=== PATIENT | female | born 1980 | race Caucasian/White ===

== ENCOUNTER 2020-12-15 00:50 | Inpatient (IN) | payer OTHER, SELFPAY ==
[~2020-12-15] VITALS: Ht 160 cm; Wt 53.5 kg
[2020-12-15 00:52] VITALS: BP 130/69
--- NOTE | 2020-12-15 00:52 | NUR ---
BIBA JORDANA TAKEN TO BED 10
--- NOTE | 2020-12-15 00:55 | NUR ---
PATIENT 40 Y/O FEMALE BIBA FROM [facility] FOR C/O ABNORMAL LABS. PATIENT PRESENTS ALERT AND ORIENTED X 4. PATIENT ABLE TO MAKE NEEDS KNOWN. CALL LIGHT LEFT WITHIN REACH. PATIENT ON TRACH, RT AT BEDSIDE SETTING UP COOL AEROSOL MIST. PATIENT RESPIRATIONS ARE EVEN AND UNLABORED. NO SOB NOTED. PATIENT NOTED WITH PALE SKIN AND PALE ORAL MUCOSA. PATIENT NOTED WITH GTUBE. PATIENT DYALISIS ,,SAT. PATIENT WENT TO DYALISIS 12/14/20. SHUNT NOTED IN L FA. PATIENT REMAINS ON PHARMACY INNOVATION ASSISTANT. VSS. MEDHX:RESPIRATORY FAILURE, DM TYPE II, CHRONIC KIDNEY DISEASE, LEGALLY BLIND, CHRONIC ANEMIA, ANXIETY, DEPRESSION, DYSPAHGIA ALLERGIES: SEE ALLERGIES LIST
--- NOTE | 2020-12-15 01:10 | NUR ---
PER ERMD IV PLACEMENT CONSENT GIVEN TO PLACE IN R LOWER LEG. ERMD AWARE OF PATIENT'S DIABETES DIAGNOSIS.
--- NOTE | 2020-12-15 01:13 | NUR ---
EKG PERFORMED AT BEDSIDE. EKG READS SINUS RHYTHM @ 88
[2020-12-15 01:26] LABS: BASOPHILS # (AUTO) 0.1 K/uL (0.00-0.22); BASOPHILS % (AUTO) 0.6 % (0.0-2.0); EOSINOPHILS # (AUTO) 0.2 K/uL (0-0.4); LYMPHOCYTES # (AUTO) 0.6 K/uL (2.5-16.5); LYMPHOCYTES % (AUTO) 7.1 % (20.5-51.1); MEAN CORPUSCULAR HEMOGLOBIN 32 pg (27-31); MEAN CORPUSCULAR HGB CONC 33 g/dL (33-37); MEAN CORPUSCULAR VOLUME 98.1 fL (80-94); MONOCYTES # (AUTO) 0.3 K/uL (0.8-1.0); MONOCYTES % (AUTO) 4.2 % (1.7-9.3); NEUTROPHILS # (AUTO) 7.1 K/uL (1.8-7.7); NEUTROPHILS % (AUTO) 86.1 % (42.2-75.2); PLATELET COUNT (AUTO) 402 K/uL (140-450); RED BLOOD CELL COUNT(AUTO) 1.92 MIL/uL (4.20-5.40); RED CELL DISTRIBUTION WIDTH 20.1 % (11.6-13.7); WHITE BLOOD COUNT (AUTO) 8.2 K/uL (4.8-10.8)
[2020-12-15 01:31] LABS: HEMATOCRIT 18.8 % (36-48); HEMOGLOBIN 6.1 g/dL (12.0-16.0)
[2020-12-15 01:41] LABS: ANION GAP 12.8 (8-16); CARBON DIOXIDE 26.4 mmol/L (21-32); POTASSIUM 4.2 mmol/L (3.5-5.1)
[2020-12-15 01:43] LABS: PROTHROMBIN TIME 13.1 secs (10.8-13.4)
--- NOTE | 2020-12-15 01:43 | NUR ---
PATIENT C/O 10/10 SACRAL PAIN. PATIENT REPOSITIONED IN BED AND GIVEN EXTRA PILLOWS FOR COMFORT. ERMD GAVE NEW ORDERS FOR PAIN MEDICAITON.
[2020-12-15] MEDS ORDERED: HYDROcodone/APAP 5/325 MG 1 TAB TAB PO ONE (01:50)
[2020-12-15] MEDS ORDERED: HYDROcodone/APAP 5/325 MG 1 TAB TAB ONE (01:50)
--- NOTE | 2020-12-15 02:16 | NUR ---
PATIENT REPOSITIONED IN BED FOR COMFORT MEASURES. PATIENT REMAINS ON INDUSTRIAL SALES ENGINEER. VSS.
--- NOTE | 2020-12-15 03:05 | NUR ---
PER SCARLET, HOOD MAKER MACHINE TO RUN COVID SPENCER IS DOWN AND SPECIMENT WILL BE SENT TO [facility] THEREFORE RESULTS WILL BE DELAY. GENESIS MADE AWARE.
--- NOTE | 2020-12-15 03:15 | NUR ---
Consent signed per PATIENT via verbal agreement to administration of blood. Blood has been type and crossmatched. Blood sent from blood bank. Information on unit of blood checked against patient wristband at bedside by two nurses. All information matches. Patient or responsible alliance party informed of potential complications associated with blood transfusion. Informed of possible transfusion reaction symptoms. Aware of need to notify nurse at once of itching, shortness of breath, flushing, feeling of impending doom, or other symptoms not previously present. Vital signs taken within 5 minutes prior to initiation of transfusion. RN will remain with patient for first 15 minutes of transfusion at which time vital signs will be re-assessed.
[2020-12-15] MEDS: DEXTROSE 5% 1,000 ML IV SCH ×2 (03:30→21:52)
--- NOTE | 2020-12-15 03:30 | NUR ---
Ayan zheng in ED - 12/15/20 at 0335 by MELISSAAA PT SLEEPING COMFORTABLY ON CA 28% 7LPM W/ NO DISTRESS NOTED WATER ON CA WAS REPLACED W/ FULL WATER
--- NOTE | 2020-12-15 03:35 | NUR ---
PT SLEEPING COMFORTABLY ON CA 28% 7LPM W/ NO DISTRESS NOTED WATER ON CA 3/4 FULL W/ REPLACEMENT WATER AT BEDSIDE WILL CONTINUE TO MONITOR
[2020-12-15] MEDS ORDERED: APIX5TAB PO (03:50)
[2020-12-15] MEDS ORDERED: LANS15EC28 GT (03:50)
[2020-12-15] MEDS ORDERED: ESCI10TA GT (03:50)
[2020-12-15] MEDS ORDERED: PRO5 PO (03:50)
[2020-12-15] MEDS ORDERED: ASCO500T95 PO (03:50)
[2020-12-15] MEDS ORDERED: OSC500 GT (03:50)
[2020-12-15] MEDS ORDERED: BISA-218 RC (03:50)
[2020-12-15] MEDS ORDERED: AMLO10TA GT (03:50)
--- NOTE | 2020-12-15 04:02 | NUR ---
PATIENT WOUND PICTURES TAKEN OF SACRUM AND BUTTOCKS. PATIENT SKIN LEFT CLEAN AND DRY. WOUNDS RE-DRESSED. PATIENT REMAINS ON OUTPATIENT RECEPTIONIST. VSS.
--- NOTE | 2020-12-15 04:35 | NUR ---
Patient will be admitted to care of . Admited to TELE. Will go to room 117. Belongings list completed. Report to APPLE JARVIS.
--- NOTE | 2020-12-15 05:05 | NUR ---
ER NURSE CALLED REPORT GIVEN. ADMITTED A 40 Y/O FEMALE PATIENT VIA GURNEY, AWAKE, ALERT, ORIENTED X4. CC: ABNORMAL LABS: HGB- 6.1 HCT: 18/8. DX: SYMPTOMATIC ANEMIA. NO ACUTE DISTRESS, RESPIRATION EVEN UNLABORED.TRACH IN PLACE, WITH O2 AT 3LPM. G-TUBE IN PLACE CONNECTED TO A BAG. RFA AV SHUNT. 1 UNIT OF BLOOD INFUSING, DONE AT 0530, V/S 131/77,84,18,97.6,99%. V/S-126/74,85,18,97.5,99%. PT HAS WOUND ON THE SACRUM AND BUTTOCKS. TREATMENT INITIATED IN ER. DIALYSIS ON SUNDAY, SUNDAY AND SUNDAY. LAST DIALYSIS DONE SUNDAY. MRSA NARES SCREENING DONE. SPENCER NEGATIVE. PATIENT IS LEGALLY BLIND. WILL CONTINUE TO MONITOR.
--- NOTE | 2020-12-15 05:14 | NUR ---
PT TRANSFERRED FROM ED TO TELE RM 117. PT TOLERATED TRANSPORT WELL AND REMAINS ON CA 28% 7LPM. WILL RETURN AT A LATER TIME FOR TRACH CARE RN IS AT BEDSIDE WORKING W/ PT
--- NOTE | 2020-12-15 05:35 | NUR ---
TRACH CARE COMPLETED
[2020-12-15] MEDS ORDERED: HYDROcodone/APAP 5/325 MG 1 TAB TAB PO SCH (07:30)
--- NOTE | 2020-12-15 07:30 | NUR ---
RECEIVED BEDSIDE REPORT FROM NIGHT RN. AOX3, ABLE TO MAKE NEEDS KNOWN. NO C/O PAIN. AMBULATORY. TRACH TO O2. RESPIRATIONS ARE EVEN AND UNLABORED. SKIN IS WARM AND DRY. SKIN NOT INTACT, WITH SACRAL AND BUTTOCK WOUND. IV SIGHT IN LEFT LOWER LEG INFUSING D5W AT 60CC/HR. WITH RFA AV SHUNT. POC DISCUSSED. CALL LIGHT IS WITHIN REACH. WILL CONTINUE TO MONITOR.
[2020-12-15 08:00] VITALS: BP 146/87
[2020-12-15] MEDS ORDERED: ZOLPIDEM 5 MG TAB PO PRN (08:25)
[2020-12-15] MEDS ORDERED: DOCUSATE SODIUM 100 MG GELCAP PO PRN (08:25)
--- NOTE | 2020-12-15 08:50 | NUR ---
Due morning meds given
[2020-12-15 08:56] LABS: BASOPHILS # (AUTO) 0.1 K/uL (0.00-0.22); EOSINOPHILS # (AUTO) 0.2 K/uL (0-0.4); EOSINOPHILS % (AUTO) 2.6 % (0.0-4.0); HEMATOCRIT 25.3 % (36-48); HEMOGLOBIN 8.3 g/dL (12.0-16.0); LYMPHOCYTES # (AUTO) 0.7 K/uL (2.5-16.5); LYMPHOCYTES % (AUTO) 10.2 % (20.5-51.1); MEAN CORPUSCULAR HEMOGLOBIN 32 pg (27-31); MEAN CORPUSCULAR HGB CONC 33 g/dL (33-37); MEAN CORPUSCULAR VOLUME 97.4 fL (80-94); MONOCYTES # (AUTO) 0.3 K/uL (0.8-1.0); MONOCYTES % (AUTO) 4.9 % (1.7-9.3); NEUTROPHILS # (AUTO) 5.7 K/uL (1.8-7.7); NEUTROPHILS % (AUTO) 81.3 % (42.2-75.2); PLATELET COUNT (AUTO) 408 K/uL (140-450); RED CELL DISTRIBUTION WIDTH 19.3 % (11.6-13.7)
[2020-12-15] MEDS ORDERED: PANTOPRAZOLE 40 MG TABEC PO SCH (09:00)
[2020-12-15 09:21] LABS: CHOL/HDL RATIO 2.9 (1-4.5); FREE T4 (FREE THYROXINE) 0.67 ng/dL (0.76-1.46); PHOSPHORUS 2.9 mg/dL (2.5-4.9); THYROID STIMULATING HORMONE 2.01 uIU/mL (0.34-3.74)
[2020-12-15] MEDS: PANTOPRAZOLE 40 MG INJ VIAL IVP SCH (09:24)
--- NOTE | 2020-12-15 10:51 | NUR ---
PATIENT HAS BEEN SCREENED AND CATEGORIZED HIGH NUTRITION RISK. PATIENT WILL BE SEEN WITHIN 1-2 DAYS OF ADMISSION. 12/16/[address]
[2020-12-15] MEDS: ONDANSETRON 4 MG/2 ML VIAL IM/IVP PRN ×2 (11:19→16:00)
--- NOTE | 2020-12-15 11:20 | NUR ---
WITH C/O PAIN AT TRACH SITE 12/02. NORCO GIVEN ORDERED
[2020-12-15] MEDS: HYDROcodone/APAP 7.5/325 MG 1 TAB PO PRN ×3 (11:23→20:19)
--- NOTE | 2020-12-15 11:45 | NUR ---
DIETITIAN AT BEDSIDE TALKING TO PT REGARDING HER DIET
[2020-12-15] MEDS: SKINTEGRITY HYDROGEL TP SCH (11:50)
[2020-12-15 12:00] VITALS: BP 127/75
--- NOTE | 2020-12-15 12:27 | NUR ---
WOUND CARE EVALUATION NOTE: SKIN ASSESSMENT DONE WITH PRIMARY RN ON THIS 40 Y/O PT ADMITTED WITH PRESSURE INJURIES AND JEFF SCALE AT VERY HIGH RISK, PAST MEDICAL HX: RESPIRATORY FAILURE, DM TYPE II, CHRONIC KIDNEY DISEASE, LEGALLY BLIND, CHRONIC ANEMIA, ANXIETY, DEPRESSION, DYSPHAGIA , ABOVE INFORMATION OBTAIN FROM H&P. PT. MAKE NEED KNOW BY WHISPERING WORDS, ALL NEEDS ATTENDED. PT. SKIN IS WARM AND DRY, PALE SKIN COLOR. AV SHUNT TO RIGHT ARM SKIN INTACT WITH DRESSING IN PLACE. BLE NO HAIR GROWTH, NO EDEMA TO BILATERAL LOWER LEGS. BILATERAL DORSAL PEDAL PULSES PRESENT AND NORMAL, CAPILLARY REFILLED <3 SEC X 10 TOES. POC DISCUSSED WITH PT AND PRIMARY RN. PT. IS NPO AND PENDING GI CONSULT PER RN. INTEGUMENTARY: -TRACK AND GT SITES DRAKE STOMA SKIN DRY AND INTACT -LEFT ISCHIA PRESSURE INJURY UNKNOWN HX OF STAGING, TODAYS ASSESSMENT PARTIAL THICKNESS SKIN LOSS 4X1CM SUPERFICIAL DEPTH, WOUND BED 100% GRANULATING TISSUE, NO ODOR, MOIST, DRAKE-WOUND SKIN NON-BLANCHABLE HEALING SCAR TISSUE, PAIN 0/10 -SACRALCOCCYX PRESSURE INJURY STAGE 4 WOUND BED [id number] CM UNDERMINING 6-9 OCLOCK 1.8CM WOUND BED 100% GRANULATING TISSUE, MODERATE AMOUNT SANGUINOUS DRAINAGE, NO ODOR, WOUND EDGE FLAT AND DRAKE WOUND SKIN PALE PINK, INTACT, PAIN 0/10 RECOMMENDATIONS - CLEANSE SACRALCOCCYX AND LEFT ISCHIA WITH WOUND CARE SOLUTION, PAT DRY, APPLY HYDROGEL TO WOUND BED COVER WITH FAN FOLDED KERLIX ROLL AND ABD PAD, SECURED WITH TAPE QD AND PRN IF SOILING -CLEANSE LEFT ISCHIA WITH WOUND CARE SOLUTION, PAT DRY, APPLY HYDROGEL TO WOUND BED COVER WITH ADAPTIC AND ISLAND DRESSING QD AND PRN IF SOILING -TURN AND REPOSITION PATIENT Q 2H -ASSESS AND MONITOR SKIN CONDITION DURING POSITION CHANGE -OFFLOAD BILATERAL HEELS BY PLACING PILLOWS UNDER CALVES AT ALL TIMES, UNLESS OTHERWISE CONTRAINDICATED -PRESSURE REDISTRIBUTION SURFACE THERAPY -KEEP SKIN CLEAN AND DRY AT ALL TIMES. PLEASE CONTACT WOUND CARE NURSE FOR ANY QUESTION AND CHANGE OF WOUND CONDITION. Addendum: 12/24/20 at 1105 by Julius Kilpatrick RN (Grace) CORRECTION: -SACRALCOCCYX PRESSURE INJURY STAGE 4 WOUND BED [id number] CM UNDERMINING 6-9 OCLOCK 1.8CM WOUND BED 80% GRANULATING TISSUE,20% SOFT YELLOW SLOUGH TISSUE, MODERATE AMOUNT SANGUINOUS DRAINAGE, NO ODOR, WOUND EDGE FLAT AND DRAKE WOUND SKIN PALE PINK, INTACT, PAIN 0/10
--- NOTE | 2020-12-15 13:34 | NUR ---
ALIN FROM DIALYSIS NOTIFIED OF THE HD ORDERED FOR TOMORROW.
[2020-12-15 13:35] LABS: ALBUMIN 1.6 g/dL (3.4-5.0); BILIRUBIN,DIRECT 0.2 mg/dL (0.0-0.3); TOTAL BILIRUBIN 0.4 mg/dL (0.0-1.0)
[2020-12-15] MEDS: ERYTHROMYCIN ETHYLSUCCINATE SUSP 200 MG/5 ML UDC PO SCH ×2 (13:52→16:39)
--- NOTE | 2020-12-15 14:20 | NUR ---
PT ASLEEP AT THIS TIME. NO APPARENT DISTRESS
--- NOTE | 2020-12-15 15:15 | NUR ---
WITH C/O SACRAL WOUND PAIN 12/02. NORCO GIVEN ORDERED
--- NOTE | 2020-12-15 15:39 | NUR ---
DC PLANNIN YRS OLD FEMALE PATIENT [facility] WITH A DX OF SYMPTOMATIC ANEMIA. PT HAS A HX OF ESRD ON DIALYSIS TTHS, PE, DVT, DM AND HTN. PT HAS TRACH AND G-TUBE. H/H WAS 6.5 ON ADMISSION, TRANSFUSED 1 UNIT OF PRBC AND HEMOGLOBIN WENT UP 8.3. CXR SHOWED PNA AND POSSIBLE TRACE LEFT PLEURAL EFFUSION . RAPID COVID TEST NEGATIVE. ADMINISTERED IVF, IV ABX ERYTHROMYCIN AND CONTINUED HOME MEDS. CONSULTED WITH PULMO, NEPHRO AND GI. DC PLAN TO RETURN BACK TO [facility] WHEN STABLE CM TO FOLLOW Addendum: 12/17/20 at 1545 by Joaquina Eisenberg RN DC PLANNING: CALLED PT'S SPOKE WITH FELIPE ESTRELLA , STATED HE PREFERRED HIS TO BE REPLACED TO OTHER FACILITY, NOT HAPPY WITH THE CARE, PLUS IF IT IS POSSIBLE TO PLACE HER CLOSER TO [facility]. I EXPLAINED THAT I CAN REQUEST OTHER FACILITY HOWEVER SHE IS ON DIALYSIS AT [facility]. FAXED TO [facility]. PER FELIPE IF WE CAN'T FIND ANY OK TO GO BACK TO [facility]. CALLED [facility] SPOKE WITH LIZA THE ADMIN DISCUSSED WITH TH ISSUES AND CONCERN, PER LIZA NO ONE REPORTED OR FELIPE DIDN'T COMPLAIN TO THE FOOD SCIENCE TECHNICIAN . JIGNA DE JESUS WILL REACH OUT TO HIM AND DISCUSS THE CONCERN. IF THEY AGREE PT CAN GO TO ROOM 112A. DC PLAN OVER THE WEEKEND. Addendum: 12/17/20 at 1600 by Joaquina Eisenberg RN DC PLANNING: CALLED [facility] [phone] SPOKE WITH BERKLEY PT IS ON HEMODIALYSIS ON , AND THE TRANSPORT IS WITH [facility] [phone]. PER BERKLEY FOR THEM TO ACCEPT PT HEMOGLOBIN HAS TO BE ABOVE 8 AND FAXED ALL CLINICALS TO [phone] . CM TO FOLLOW Addendum: 12/17/20 at 1616 by Joaquina Eisenberg RN DC PLANNING: CALLED PT'S SPOKE WITH FELIPE NOTIFIED HIM THAT UNABLE TO FIND OTHER ACCEPTING FACILITIES BECAUSE OF TRACH-COLLAR AND HEMODIALYSIS, FELIPE AGREED FOR HER TO GO BACK TO [facility] WHEN SHE IS STABLE CM TO FOLLOW. PT CAN GO TO ROOM 112 A. PLS CALL [facility] AT [phone] CM TO FOLLOW Addendum: 12/22/20 at 1519 by Joaquina Eisenberg RN D PLANNING: STILL AWAITING FOR EGD TO BE DONE, DR BALDERRAMA IN TO UNIT PERFORMING ANOTHER PATIENT. DC PLAN TO GO BACK TO [facility] WHEN STABLE. CM TO FOLLOW Addendum: 12/23/20 at 0923 by Joaquina Eisenberg RN DC PLANNING: CALLED PT'S WILLIAM ZELAYA [phone] TO DISCUSS PT'S REQUEST TO GO HOME. LEFT MESSAGE. CM TO FOLLOW Addendum: 12/24/20 at 7306 by Joaquina Eisenberg RN DC PLANNING: PT'S NATHALIE AND HER SON IN THE UNIT, FAVIOLA WOUND CARE NURSE DISCUSSED THE WOUND CARE AND THE RISK FOR TAKING PATIENT HOME. AFTER HE SEEN THE WOUND NATHALIE AGREED PT TO GO BACK TO [facility] HOWEVER DIDN'T WNAT PT TO GO BACK TO [facility] BECAUSE OF POOR CARE. PROVIDE [facility] [place], [facility] AND [facility] . NATHALIE VISITED [facility] [place] AND SPOKE WITH THE ADMIN AND STATED LIKED IT AND HE WANTED HER TO GO TO [facility] [place]. AWAITING FOR [facility] [place] [place] TO ACCEPT PATIENT. CALLED [facility] SPOKE WITH BERKLEY STATED CAN CONTINUE DIALYSIS TTHS AT 6 AM. CALLED THE PREVIOUS TRANSPORT [facility] [phone] STATED THEY CAN NOT [place] PATIENT FROM [facility]. DC PLAN AWAITING FOR THE ROOM NUMBER FROM [facility] [place]. CM TO FOLLOW Addendum: 12/24/20 at 1350 by Joaquina Eisenberg RN DC PLANNING PT IS ACCEPTED AT [facility] [place] [place] CAN GO TO ROOM 49C # TO GIVE REPORT [phone] [facility]ED TRANSPORT WITH [facility] [phone] [place] TIME 5 PM REF # [id number]. [facility] FOR DIALYSIS SUNDAY, SUNDAY AND SUNDAY [facility] TIME 5 AM, REF # [id number] WILL NOTIFIED [facility] [place] [place] AND PT WILL HAVE DIALYSIS TOMORROW. NOTIFIED YVETTE JARVIS AND NATHALIE. CM TO FOLLOW
[2020-12-15 16:00] VITALS: BP 126/76
--- NOTE | 2020-12-15 17:10 | NUR ---
PT RESTING IN BED. NO C/O PAIN, NO SOB
--- NOTE | 2020-12-15 18:30 | NUR ---
with c/o back discomfort, repositioning effective
--- NOTE | 2020-12-15 19:30 | NUR ---
REPORT GIVEN FROM AM NURSE. PATIENT IN BED RESTING . NO ACUTE DISTRESS NOTED AT THIS TIME. GLUCERNA G-TUBE FEEDING RUNNING AT 3O ML/HR. CALL LIGHT WITHIN REACH. WILL CONTINUE TO MONITOR.
[2020-12-15 20:00] VITALS: BP 117/75
[2020-12-15] MEDS ORDERED: CRUSHER, PILL MC ONE (20:05)
--- NOTE | 2020-12-15 20:19 | NUR ---
COMPLAINED OF MODERATE PAIN ON SACRAL WOUND 12/02, NORCO PRN ADMINISTERED PER MD ORDERED.
[2020-12-16] VITALS: BP 153/85
[2020-12-16] MEDS: HYDROcodone/APAP 7.5/325 MG 1 TAB PO PRN ×5 (00:41→20:28)
[2020-12-16 04:00] VITALS: BP 152/84
--- NOTE | 2020-12-16 04:35 | NUR ---
PATIENT VERBALIZES SHE IS DEPRESSED. COMFORTED
[2020-12-16 06:29] LABS: BASOPHILS # (AUTO) 0.1 K/uL (0.00-0.22); BASOPHILS % (AUTO) 0.8 % (0.0-2.0); EOSINOPHILS # (AUTO) 0.2 K/uL (0-0.4); HEMATOCRIT 24.1 % (36-48); HEMOGLOBIN 8.1 g/dL (12.0-16.0); LYMPHOCYTES # (AUTO) 0.9 K/uL (2.5-16.5); LYMPHOCYTES % (AUTO) 11.1 % (20.5-51.1); MEAN CORPUSCULAR HEMOGLOBIN 32 pg (27-31); MEAN CORPUSCULAR HGB CONC 34 g/dL (33-37); MEAN CORPUSCULAR VOLUME 96.3 fL (80-94); MONOCYTES # (AUTO) 0.4 K/uL (0.8-1.0); MONOCYTES % (AUTO) 5.2 % (1.7-9.3); NEUTROPHILS # (AUTO) 6.3 K/uL (1.8-7.7); NEUTROPHILS % (AUTO) 80.9 % (42.2-75.2); PLATELET COUNT (AUTO) 448 K/uL (140-450); RED BLOOD CELL COUNT(AUTO) 2.51 MIL/uL (4.20-5.40); RED CELL DISTRIBUTION WIDTH 18.7 % (11.6-13.7); WHITE BLOOD COUNT (AUTO) 7.8 K/uL (4.8-10.8)
[2020-12-16 06:37] LABS: ANION GAP 7.9 (8-16); CARBON DIOXIDE 29.2 mmol/L (21-32); CREATININE 2.4 mg/dL (0.6-1.3); POTASSIUM 4.1 mmol/L (3.5-5.1)
--- NOTE | 2020-12-16 07:27 | NUR ---
ENDORSED TO AM NURSE FOR CONTINUITY OF CARE. PT IS STABLE.
--- NOTE | 2020-12-16 07:31 | NUR ---
ENDORSED TO AM NURSE FOR CONTINUITY OF CARE . PT IS STABLE.
--- NOTE | 2020-12-16 07:36 | NUR ---
RECEIVED BEDSIDE REPORT FROM NIGHTSHIFT NURSE. PT RESTING IN BED. ABLE TO MAKE SOME NEEDS KNOWN. RESPIRATIONS EVEN AND UNLABORED WITH NO SOB OR RESPIRATORY DISTRESS. SKIN WARM AND DRY TO TOUCH. SAFETY MEASURES IN PLACE. WILL CONTINUE TO MONITOR
[2020-12-16 08:00] VITALS: BP 151/84
[2020-12-16] MEDS: ERYTHROMYCIN ETHYLSUCCINATE SUSP 200 MG/5 ML UDC PO SCH ×3 (08:58→17:13)
[2020-12-16] MEDS: PANTOPRAZOLE 40 MG INJ VIAL IVP SCH (09:01)
--- NOTE | 2020-12-16 09:01 | NUR ---
ADMINISTERED SCHED MED PRESCRIBED PER MD ORDER. PT TOLERATED WELL. PT COMPLAINED OF MODERATE PAIN. PRN NORCO ADMINISTERED PRESCRIBED PER MD ORDER. MEDICATION EDUCATION PERFORMED. PT VERBALIZED UNDERSTANDING. SAFETY MEASURES IN PLACE. WILL CONTINUE TO MONITOR
--- NOTE | 2020-12-16 09:11 | NUR ---
FNS CONSULT HAS BEEN RECEIVED FOR WOUNDS/PRESSURE INJURIES.
[2020-12-16] MEDS: SKINTEGRITY HYDROGEL TP SCH (09:15)
--- NOTE | 2020-12-16 10:04 | NUR ---
PATIENT REFUSED TO BE TURNED AND CHANGED WITH WASTEWATER SUPERINTENDENT. PT STATED "LEAVE ME ALONE! I AM FINE!" EDUCATED PT ON PURPOSE OF REPOSITIONING. PT SAID "I KNOW AND WOULD LIKE TO BE TURNED LATER." AWARE. SAFETY MEASURES IN PLACE. WILL CONTINUE TO MONITOR
[2020-12-16] MEDS ORDERED: SODIUM FERRIC GLUCONATE 125 MG in NACL 0.9% 100 ML IV SCH (10:30)
--- NOTE | 2020-12-16 11:30 | NUR ---
NATHALIE CALLED AND WANTED UPDATE. UPDATE GIVEN. NATHALIE SAID THAT HE WOULD LIKE TO SPEAK WITH A DOCTOR. NOTIFIED DR. ANGLIN THAT NATHALIE WOULD LIKE AN UPDATE. VERBALIZED UNDERSTANDING. PT SPEAKING TO NATHALIE ON THE PHONE. SAFETY MEASURES IN PLACE. WILL CONTINUE TO MONITOR
[2020-12-16 12:00] VITALS: BP 158/87
--- NOTE | 2020-12-16 12:00 | NUR ---
HD NURSE HERE TO DIALYZE PATIENT. REPORT GIVEN AT BEDSIDE. SAFETY MEASURES IN PLACE. WILL CONTINUE TO MONITOR
[2020-12-16] MEDS: DEXTROSE 5% 1,000 ML IV SCH (12:50)
--- NOTE | 2020-12-16 13:51 | NUR ---
12/16/20 RD INITIAL ASSESSMENT COMPLETED PLEASE REFER TO NUTRITION ASSESSMENT UNDER CARE ACTIVITY FOR ESTIMATED NUTRITIONAL NEEDS. 1. CONTINUE RENAL MECHANICAL SOFT DIET TOLERATED 2. RECOMMENDED CHANGING FORMULA TO NEPRO 1.8 @ 40 ML/HR WITH PROSOURCE ONCE DAILY -THIS WILL PROVIDE 1788 KCAL AND 93 GM OF PROTEIN. MEETING 100% OF KCAL AND PROTEIN NEEDS 3. RECOMMENDED VITAMIN C 500 MG BID AND NEPHRO-PAMELA ONCE DAILY 4. RD TO FOLLOW-UP 2-3 DAYS, HIGH RISK ANNA SHERMAN RD
--- NOTE | 2020-12-16 13:56 | NUR ---
DR. BALDERRAMA APPROVED RD RECOMMENDATION TO CHANGE TUBE FEEDING TO NEPRO. DR. ANGLIN APPROVED RECOMMENDATION FOR VITAMIN C 500 MG BID AND NEPHRO-PAMELA ONCE DAILY.
--- NOTE | 2020-12-16 14:43 | NUR ---
PT COMPLAINED OF MODERATE PAIN. PRN NORCO ADMINISTERED PRESCRIBED PER MD ORDER. MEDICATION EDUCATION PERFORMED. PT VERBALIZED UNDERSTANDING. SAFETY MEASURES IN PLACE. WILL CONTINUE TO MONITOR
[2020-12-16] MEDS ORDERED: DEXTROSE 50% 50 ML SYR IVP PRN (15:20)
[2020-12-16] MEDS: NACL 0.9% 1,000 ML IV SCH (15:31)
[2020-12-16 16:00] VITALS: BP 155/85
--- NOTE | 2020-12-16 16:00 | NUR ---
PT HAD 1L OUT FROM HD. PT TOLERATED WELL. SAFETY MEASURES IN PLACE. WILL CONTINUE TO MONITOR
[2020-12-16] MEDS: BLOOD GLUCOSE MONITORING 1 DEV DEV FS SCH ×2 (17:10→21:54)
--- NOTE | 2020-12-16 17:15 | NUR ---
PT RESTING IN BED. ABLE TO MAKE NEEDS KNOWN. RESPIRATIONS EVEN AND UNLABORED WITH NO SOB OR RESPIRATORY DISTRESS. SKIN WARM AND DRY TO TOUCH. SAFETY MEASURES IN PLACE. WILL CONTINUE TO MONITOR
--- NOTE | 2020-12-16 19:15 | NUR ---
ENDORSED TO NIGHTSHIFT FOR CONTINUITY OF CARE. PT IS STABLE
--- NOTE | 2020-12-16 19:20 | NUR ---
RECEIVED REPORT FROM AM NURSE. PATIENT ON BED WELL RESTED. DENIES PAIN. WILL CONTINUE TO MONITOR.
[2020-12-16 20:00] VITALS: BP 148/84
[2020-12-16] MEDS: ASCORBIC ACID 500 MG TAB PO SCH (21:49)
--- NOTE | 2020-12-16 21:49 | NUR ---
PT COMPLAINED OF INABILITY TO SLEEP, AMBIEN GIVEN ORDERED.
[2020-12-16] MEDS: INSULIN LISPRO SLIDING SCALE 100 UNITS/ML VIAL SUBQ PRN (21:54)
[2020-12-17] VITALS: BP 160/87
[2020-12-17] MEDS: HYDROcodone/APAP 7.5/325 MG 1 TAB PO PRN ×4 (00:28→21:14)
--- NOTE | 2020-12-17 02:00 | NUR ---
MADE ROUNDS PT ASLEEP
--- NOTE | 2020-12-17 03:30 | NUR ---
RECEIVED PATIENT FOR CONTINUITY OF CARE DUE TO CHANGE ASSIGNMENT. PATIENT IS A/A/O X4. RESPIRATORY EVEN AND UNLABORED, TRACH TO O2 7L. NO SIGN OF DISTRESS NOTED. SKIN WARM, DRY, NON DIAPHORETIC, SACRAL AND BUTTOCK WOUND WITH DRESSING IN PLACE. IV ON RIGHT LOWER LEG 20G, INTACT AND PATENT, IS INFUSING NS @60ML/HR. AV SHUNT NOTED ON RIGHT FA FOR HEMODIALYSIS. G-TUBE IN PLACE, IS RUNNING NEPRO @40ML/HR WITH WATER FLUSH 50ML Q6HR. PATIENT IS ABLE TO MAKE NEEDS KNOWN. PLAN OF CARE DISCUSSED, PATIENT VERBALIZED UNDERSTANDING. PRECAUTION IN PLACE. CALL LIGHT WITHIN REACH. WILL CONTINUE TO MONITOR.
--- NOTE | 2020-12-17 03:46 | NUR ---
ENDORSED PT TO RN BOWENS FOR CONTINUITY OF CARE. PT IS STABLE
[2020-12-17 04:00] VITALS: BP 177/93
--- NOTE | 2020-12-17 04:45 | NUR ---
PATIENT COMPLAINS OF PAIN ON HER SACRAL, MEDICATION PRN GIVEN WITH EDUCATION. PATIENT VERBALIZED UNDERSTANDING. NO SIGN OF DISTRESS NOTED. PRECAUTION IN PLACE. CALL LIGHT WITHIN REACH. WILL CONTINUE TO MONITOR.
[2020-12-17] MEDS: BLOOD GLUCOSE MONITORING 1 DEV DEV FS SCH ×4 (06:25→21:20)
[2020-12-17] MEDS: INSULIN LISPRO SLIDING SCALE 100 UNITS/ML VIAL SUBQ PRN ×4 (06:25→21:26)
--- NOTE | 2020-12-17 06:25 | NUR ---
BLOOD SUGAR CHECK 171, 2UNITS OF INSULIN WAS GIVEN WITH EDUCATION. PATIENT VERBALIZED UNDERSTANDING. PATIENT TOLERATED WELL. CALL LIGHT WITHIN REACH. PRECAUTION IN PLACE. WILL CONTINUE TO MONITOR.
--- NOTE | 2020-12-17 07:28 | NUR ---
ENDORSED PATIENT TO AM NURSE FOR CONTINUITY OF CARE. PATIENT IS STABLE.
--- NOTE | 2020-12-17 07:30 | NUR ---
RECEIVED BEDSIDE REPORT FROM BULK CLERK NURSE. PATIENT IS A/A/O X4, ABLE TO MAKE NEEDS KNOWN.. RESPIRATORY EVEN AND UNLABORED, TRACH TO O2 7L WITH HUMIDIFIER . NO SIGNS OF RESPIRATORY DISTRESS NOTED. SKIN WARM AND DRY. IV ON RIGHT LOWER LEG 20G INFUSING FLUIDS WELL. INTACT AND PATENT. AV SHUNT NOTED ON RIGHT FA FOR HEMODIALYSIS. G-TUBE IN PLACE INFUSING. INTACT AND PATENT. NOTED SACRAL AND BUTTOCK WOUND WITH DRESSING IN PLACE. PLAN OF CARE DISCUSSED, PATIENT VERBALIZED UNDERSTANDING. PRECAUTION IN PLACE. CALL LIGHT WITHIN REACH. WILL CONTINUE TO MONITOR.
--- NOTE | 2020-12-17 07:55 | NUR ---
REVIEWED PATIENT PULMONARY AND HHN THERAPY STATUS PMHX: ASTHMA VORBO: HHN THERAPY Q6 AND Q4 PRN FOR SOB/WHEEZE; OXYGEN SATURATION GREATER THAN 90% "OK FOR REPORT CLERK TO ORDER"
[2020-12-17 08:00] VITALS: BP 182/75
[2020-12-17] MEDS ORDERED: ALBUTEROL SULFATE/IPRATROPIU 3 ML SOL IH PRN (08:00)
[2020-12-17] MEDS: NACL 0.9% 1,000 ML IV SCH ×2 (09:00→22:35)
[2020-12-17] MEDS: ERYTHROMYCIN ETHYLSUCCINATE SUSP 200 MG/5 ML UDC PO SCH ×3 (09:20→17:40)
[2020-12-17] MEDS: SKINTEGRITY HYDROGEL TP SCH (09:20)
[2020-12-17] MEDS: PANTOPRAZOLE 40 MG INJ VIAL IVP SCH (09:23)
[2020-12-17] MEDS: VIT-B COMP/VIT-C/FOLIC ACID 1 TAB PO SCH (09:23)
[2020-12-17] MEDS: ASCORBIC ACID 500 MG TAB PO SCH (09:23)
--- NOTE | 2020-12-17 09:30 | NUR ---
ALL SCHEDULED MEDS GIVEN. PT IS STABLE NO DISTRESS NOTED. WILL CONTINUE TO MONITOR.
[2020-12-17] MEDS: FERROUS SULFATE 325 MG TABEC PO SCH ×2 (09:34→17:41)
[2020-12-17] MEDS: hydrALAZINE 20 MG/ML VIAL IVP PRN ×2 (10:35→17:47)
[2020-12-17 12:00] VITALS: BP 168/90
--- NOTE | 2020-12-17 12:03 | NUR ---
BLOOD GLUCOSE CHECK WAS 197. INSULIN COVERAGE NEEDED. ADMINISTERED 2 UNITS OF INSULIN SQ PER MD ORDERED
[2020-12-17 12:22] LABS: BASOPHILS # (AUTO) 0.1 K/uL (0.00-0.22); BASOPHILS % (AUTO) 0.8 % (0.0-2.0); EOSINOPHILS # (AUTO) 0.2 K/uL (0-0.4); HEMATOCRIT 23.1 % (36-48); HEMOGLOBIN 7.6 g/dL (12.0-16.0); LYMPHOCYTES # (AUTO) 0.9 K/uL (2.5-16.5); MEAN CORPUSCULAR HEMOGLOBIN 32 pg (27-31); MEAN CORPUSCULAR HGB CONC 33 g/dL (33-37); MEAN CORPUSCULAR VOLUME 97.6 fL (80-94); MONOCYTES # (AUTO) 0.7 K/uL (0.8-1.0); MONOCYTES % (AUTO) 6.2 % (1.7-9.3); NEUTROPHILS # (AUTO) 9.2 K/uL (1.8-7.7); PLATELET COUNT (AUTO) 490 K/uL (140-450); RED BLOOD CELL COUNT(AUTO) 2.37 MIL/uL (4.20-5.40); RED CELL DISTRIBUTION WIDTH 18.6 % (11.6-13.7); WHITE BLOOD COUNT (AUTO) 11.1 K/uL (4.8-10.8)
[2020-12-17 12:43] LABS: ANION GAP 9.5 (8-16); CARBON DIOXIDE 25.7 mmol/L (21-32); POTASSIUM 3.2 mmol/L (3.5-5.1)
[2020-12-17] MEDS: ALBUTEROL SULFATE/IPRATROPIU 3 ML SOL IH SCH ×2 (13:26→19:00)
--- NOTE | 2020-12-17 13:59 | NUR ---
CT TECHS AT BEDSIDE. PREPARING TO TRANSFER PATIENT FOR A CT CHEST SCAN. PT IS STABLE.
[2020-12-17] MEDS: CLINDAMYCIN 600 MG in DEXTROSE 5% 50 ML IV SCH ×3 (14:00→20:55)
--- NOTE | 2020-12-17 14:10 | NUR ---
PATIENT COMPLETED CT SCAN OF THE CHEST. TRANSFERRED BACK TO THE ROOM. RT AT BEDSIDE ADJUSTING O2.
[2020-12-17 16:00] VITALS: BP 173/98
--- NOTE | 2020-12-17 16:30 | NUR ---
PATIENT COMPLAINED OF SACRUM PAIN 12/02. ADMINISTERED NORCO 7.5 PO PER MD ORDERED.
[2020-12-17] MEDS: POTASSIUM CHLORIDE 20% 40 MEQ/15 ML UDC PO PRN (17:40)
[2020-12-17] MEDS: amLODIPine 5 MG TAB GT SCH (17:41)
--- NOTE | 2020-12-17 17:43 | NUR ---
BLOOD GLUCOSE CHECK IS 223. INSULIN COVERAGE NEEDED. ADMINISTERED 4 UNITS OF INSULIN.
[2020-12-17] MEDS: ONDANSETRON 4 MG/2 ML VIAL IM/IVP PRN ×2 (18:19→22:11)
--- NOTE | 2020-12-17 18:20 | NUR ---
PATIENT COMPLAINED OF VOMITING. ADMINISTERED ZOFRAN IVP PER MD ORDERED.
--- NOTE | 2020-12-17 19:17 | NUR ---
ENDORSED TO MANAGER COMMERCIAL REAL ESTATE NURSE FOR CONTINUITY OF CARE. PT IS STABLE.
--- NOTE | 2020-12-17 19:19 | NUR ---
PT REFUSED BREATHING TREATMENT AT THIS TIME. WILL CONTINUE TO MONITOR INFORMED NURSE IF PT NEEDS A TREATMENT PRN TO CALL ME AND I WOULD COME BACK TO ADMINISTER TREATMENT.
--- NOTE | 2020-12-17 19:25 | NUR ---
RECEIVED BEDSIDE REPORT FROM DAY SHIFT NURSE FOR CONTINUITY RECEIVED BEDSIDE REPORT FROM DAY SHIFT FOR CONTINUITY OF CARE. PT IS AWAKE AND ALERT, A&OX4. TALKING ON THE PHONE. LEGALLY BLIND. TRACH TO T BAR IN PLACE WITH 8L O2 AND FIO2 28%. BREATHING UNLABORED. NO RESPIRATORY DISTRESS NOTED. ON TELE MONITORING, SR. G TUBE IN PLACE WITH FEEDING INFUSING. SKIN IS WARM AND DRY. SACRAL WOUND OPEN WITH DRESSING IN PLACE. IV IS IN THE RIGHT LEG 22 GAUGE INFUSING FLUIDS ORDERED. PLAN OF CARE DISCUSSED. FALL PRECAUTION IN PLACE.
--- NOTE | 2020-12-17 19:40 | NUR ---
TEXTED DR. BLAIR TO ASK IF THE PT WAS GOING TO HAVE HD TOMORROW. INFORMED HIM THAT HD WAS DONE YESTERDAY. DR. BLAIR RESPONDED THAT HE WILL PUT IN THE ORDER FOR HD TOMORROW. NURSE ALIN WAS CALLED AND IS AWARE THAT HD IS TO BE DONE TOMORROW.
[2020-12-17 20:00] VITALS: BP 150/83
[2020-12-17] MEDS: APIXABAN 2.5 MG TAB GT SCH (20:57)
--- NOTE | 2020-12-17 21:14 | NUR ---
PT STATES SHE HAS PAIN IN THE ABD REGION. NORCO WAS CRUSHED AND WAS GOING TO BE GIVEN BUT THE G TUBE IS CLOGGED. NORCO WAS WASTED WITH TRACY, MARKETING ACCOUNT EXECUTIVE. UNABLE TO PULL BACK RESIDUAL OR FLUSH TUBE. WILL ATTEMPT TO FLUSH AGAIN AND IF UNABLE TO, WILL NOTIFY .
--- NOTE | 2020-12-17 22:44 | NUR ---
G TUBE IS CLOGGED. UNABLE TO TO GET DRAWBACK OF FLUID AND UNABLE TO FLUSH TUBE. TEXTED DR. ESCOBEDO TO INFORM HIM THAT THE G TUBE IS CLOGGED, NO ABD DISTENTION NOTED, AND PT IS COMPLAINING OF PAIN AT THE G TUBE SITE. PT IS ALSO NAUSEOUS DESPITE BEING GIVEN ZOFRAN FOR NAUSEA. WILL WAIT FOR RESPONSE BACK.
[2020-12-17] MEDS ORDERED: METOCLOPRAMIDE 10 MG/2 ML INJ VIAL IVP PRN (22:55)
--- NOTE | 2020-12-17 22:55 | NUR ---
RECEIVED TEXT BACK FROM DR. ESCOBEDO ABOUT PT. HE ORDERED REGLAN 10 MG TID PRN N/V AND MORPHINE 2 MG IVP Q4HR SEVERE PAIN. HE ALSO STATED TO MAKE SURE THERE WAS A CONSULT WITH DR. BALDERRAMA AND IF NOT TO PLACE ONE. CHECKED AND DR. BALDERRAMA HAS ALREADY BEEN CONSULTED.
--- NOTE | 2020-12-17 23:04 | NUR ---
PT DENIES PAIN AT THIS TIME. PT IS NO LONGER NAUSEOUS. PT IS GOING BACK TO SLEEP IN SEMI FOWLERS POSITION. O2 SAT IS 96% ON TRACH TO T BAR. WILL CONTINUE TO MONITOR.
[2020-12-18] VITALS: BP 149/82
--- NOTE | 2020-12-18 01:00 | NUR ---
ROUNDED ON PT. SHE IS ASLEEP. NO RESPIRATORY DISTRESS NOTED ON TRACH TO 8L OF 28% FIO2. CHEST RISE AND FALL IS SYMMETRICAL. IV FLUIDS ARE INFUSING ORDERED. IV IS PATENT AND INTACT. G TUBE FEEDING IS STILL PAUSED THE G TUBE IS CLOGGED. DIAPER IS DRY AND IN PLACE. BED ALARM IS ON. PT IS STABLE.
[2020-12-18] MEDS: MORPHINE SULFATE 2 MG/ML SYR IVP PRN ×2 (01:16→16:48)
--- NOTE | 2020-12-18 01:16 | NUR ---
PT STATES SHE IS HAVING SOME PAIN AROUND HER TRACH. NO RESPIRATORY DISTRESS AT THIS TIME. O2 SAT IS 98%. PT WAS GIVEN MORPHINE FOR PAIN. BP WAS 145/89 PRIOR TO ADMINISTRATION OF MEDICATION. MEDICATION EDUCATION WAS PROVIDED. PT VERBALIZED UNDERSTANDING. WILL DO LINEN AND DRESSING CHANGE ON WOUND SHORTLY WHILE THE PT IS MEDICATED.
--- NOTE | 2020-12-18 01:40 | NUR ---
RECEIVED CALL FROM MATHEUS DEAL, REGARDING PT REMOVING TRACH, I ARRIVED AT ROOM, MATHEUS DEAL HAD REPLACED THE TRACH, I CHECKED TO MAKE SURE THE TRACH WAS REPLACED, I SECURED THE TIES AND REPLACED THE TRACH GAUZE. I REMOVED THE PMV, ATTACHED TO THE PTS TRACH, THE PT NODDED HER HEAD IN APPROVAL THAT IS WHAT SHE WAS TRYING TO DO. THE PT IS IN NO DISTRESS AT THIS TIME, THE PT ALSO REFUSED HER BREATHING TREATMENT AT THIS TIME. THE PTS BREATH SOUNDS WERE CLEAR, NO WHEEZING NOTED. WILL CONTINUE TO MONITOR.
--- NOTE | 2020-12-18 01:40 | NUR ---
WHILE CHANGING THE LINENS AND PROVIDING A DRESSING CHANGE ON THE PT'S SACRAL WOUND, PT PULLED OUT TRACH ACCIDENTLY. TRACH WAS PLACED BACK IN STOMA. TANIKA RT WAS CALLED AND ARRIVED TO THE PT'S BEDSIDE TO ASSESS PT. RT CHANGED GAUZE AND ENSURED TRACH COLLAR TIES WERE SECURED. PT WAS SUCTIONED THROUGH TRACH REQUESTED. SCANT, WHITE SECRETIONS WERE EXPELLED. BREATHING IS UNLABORED. NO RESPIRATORY DISTRESS NOTED. O2 SAT IS 99%. PT NODS HEAD YES WHEN ASKED IF SHE IS OKAY. PT DENIES ANY PAIN AT THIS TIME. WILL CONTINUE TO MONITOR.
[2020-12-18] MEDS: ALBUTEROL SULFATE/IPRATROPIU 3 ML SOL IH SCH ×4 (01:45→19:09)
--- NOTE | 2020-12-18 02:05 | NUR ---
SENT MESSAGE TO DR. ESCOBEDO THAT THE PT PULLED OUT TRACH AND IT WAS PLACED BACK IN THE STOMA. ALSO INFORMED HIM THAT THE RT ASSESSED THE PT AND SECURED THE TRACH. TOLD HIM THAT NO RESPIRATORY DISTRESS WAS NOTED AND PT'S O2 SAT IS 99% AND BREATHING IS UNLABORED.
--- NOTE | 2020-12-18 03:47 | NUR ---
ROUNDED ON PT. SHE IS SLEEPING IN SEMI FOWLERS POSITION. NO DISTRESS NOTED. BREATHING IS UNLABORED. IV IS PATENT AND INTACT. IV FLUIDS ARE INFUSING ORDERED. WILL CONTINUE TO MONITOR.
[2020-12-18 04:00] VITALS: BP 150/85
[2020-12-18] MEDS: CLINDAMYCIN 600 MG in DEXTROSE 5% 50 ML IV SCH ×3 (05:18→20:33)
--- NOTE | 2020-12-18 05:30 | NUR ---
PT IS AWAKE AND SPEAKING APPROPRIATELY. NO DISTRESS NOTED. BREATHING IS UNLABORED ON TRACH TO O2. PT DENIES PAIN AT THIS TIME. ATTEMPTED TO FLUSH G TUBE AND WAS UNSUCCESSFUL THE TUBE IS STILL CLOGGED. WILL MONITOR.
[2020-12-18] MEDS: BLOOD GLUCOSE MONITORING 1 DEV DEV FS SCH ×4 (05:54→20:32)
--- NOTE | 2020-12-18 05:54 | NUR ---
PT'S BS READING WAS 80. NO INSULIN NEEDED PER SLIDING SCALE.
[2020-12-18 06:18] LABS: ANION GAP 8.3 (8-16); CARBON DIOXIDE 28.7 mmol/L (21-32); CREATININE 2.2 mg/dL (0.6-1.3)
[2020-12-18 06:31] LABS: BASOPHILS % (AUTO) 0.4 % (0.0-2.0); EOSINOPHILS # (AUTO) 0.2 K/uL (0-0.4); EOSINOPHILS % (AUTO) 2.1 % (0.0-4.0); HEMATOCRIT 22.5 % (36-48); HEMOGLOBIN 7.4 g/dL (12.0-16.0); LYMPHOCYTES # (AUTO) 0.9 K/uL (2.5-16.5); LYMPHOCYTES % (AUTO) 8.6 % (20.5-51.1); MEAN CORPUSCULAR HEMOGLOBIN 32 pg (27-31); MEAN CORPUSCULAR HGB CONC 33 g/dL (33-37); MEAN CORPUSCULAR VOLUME 96.5 fL (80-94); MONOCYTES # (AUTO) 0.7 K/uL (0.8-1.0); MONOCYTES % (AUTO) 6.8 % (1.7-9.3); NEUTROPHILS # (AUTO) 8.6 K/uL (1.8-7.7); NEUTROPHILS % (AUTO) 82.1 % (42.2-75.2); PLATELET COUNT (AUTO) 471 K/uL (140-450); RED BLOOD CELL COUNT(AUTO) 2.33 MIL/uL (4.20-5.40); RED CELL DISTRIBUTION WIDTH 17.7 % (11.6-13.7); WHITE BLOOD COUNT (AUTO) 10.5 K/uL (4.8-10.8)
--- NOTE | 2020-12-18 07:20 | NUR ---
ENDORSED PT TO DAY SHIFT NURSE FOR CONTINUITY OF CARE. PT IS STABLE AT THIS TIME. PLAN OF CARE DISCUSSED. STILL HAVE NOT RECEIVED MESSAGE BACK FROM DR. ESCOBEDO. ENDORSED TO DAY SHIFT NURSE THAT PT PULLED OUT TRACH DURING THE SHIFT AND THAT THE G TUBE IS CLOGGED.
--- NOTE | 2020-12-18 07:20 | NUR ---
DIALYSIS NURSE AT PATIENT'S BEDSIDE. PATIENT WILL UNDERGO HEMODIALYSIS TREATMENT.
--- NOTE | 2020-12-18 07:22 | NUR ---
RECEIVED BEDSIDE REPORT FROM WIRE PHOTO OPERATOR NURSE. PATIENT IS A/A/O X4, ABLE TO MAKE NEEDS KNOWN.. RESPIRATORY EVEN AND UNLABORED, TRACH TO O2 8L WITH HUMIDIFIER AND FIO2 28%. NO SIGNS OF RESPIRATORY DISTRESS NOTED. SKIN WARM AND DRY. IV ON RIGHT LOWER LEG 20G INFUSING FLUIDS WELL. INTACT AND PATENT. AV SHUNT NOTED ON RIGHT FA FOR HEMODIALYSIS. G-TUBE IS OCCLUDED. MD NOTIFIED AND AWARE. GASTRIC OUTPUT WAS 150 ML. NOTED SACRAL AND BUTTOCK WOUND WITH DRESSING IN PLACE. PLAN OF CARE DISCUSSED, PATIENT VERBALIZED UNDERSTANDING. PRECAUTION IN PLACE. CALL LIGHT WITHIN REACH. WILL CONTINUE TO MONITOR.
--- NOTE | 2020-12-18 07:30 | NUR ---
RECEIVED BEDSIDE REPORT FROM RESEARCH PROGRAM INTERNSHIP NURSE. PATIENT IS A/A/O X4, ABLE TO MAKE NEEDS KNOWN.. RESPIRATORY EVEN AND UNLABORED, TRACH TO O2 7L. NO SIGNS OF RESPIRATORY DISTRESS NOTED. SKIN WARM AND DRY. IV ON RIGHT LOWER LEG 20G INFUSING FLUIDS WELL. INTACT AND PATENT. AV SHUNT NOTED ON RIGHT FA FOR HEMODIALYSIS. G-TUBE IN PLACE, IS RUNNING NEPRO @40ML/HR WITH WATER FLUSH 50ML Q6HR. NOTED SACRAL AND BUTTOCK WOUND WITH DRESSING IN PLACE. PLAN OF CARE DISCUSSED, PATIENT VERBALIZED UNDERSTANDING. PRECAUTION IN PLACE. CALL LIGHT WITHIN REACH. WILL CONTINUE TO MONITOR. Addendum: 12/18/20 at 0811 by Pranay Maloney RN RN WRONG TIMESTAMP
--- NOTE | 2020-12-18 07:41 | NUR ---
RECEIVED ON A COOL AEROSOL ON AND FUNCTIONING WELL TO A TRACH MASK WITH A SHILEY #4 DCT AIRWAY SECURED WITH A ELI TRACH TIE CUFF DEFLATED PASSY-MARY VALVE OFF AT THIS TIME ASLEEP RESTING COMFORTABLY EQUAL CHEST RISE AIRWAY PATENT NO EVIDENCE OF RHONCHI RALES OR WHEEZE BILATERAL HEMODIALYSIS IN PROGRESS
[2020-12-18 08:00] VITALS: BP 147/87
--- NOTE | 2020-12-18 08:00 | NUR ---
SPOKE TO DIALYSIS NURSE REGARDING PATIENT'S LABS. DIALYSIS NURSE MENTIONED THAT LABS ARE CONSISTENTLY HIGH AND HAS NOT TRENDED DOWN. RULING OUT THAT RECIRCULATION IS OCCURRING. WILL MONITOR LABS AGAIN TOMORROW IF LAB RESULTS DOES NOT TREND DOWN.
[2020-12-18] MEDS: ERYTHROMYCIN ETHYLSUCCINATE SUSP 200 MG/5 ML UDC PO SCH ×3 (08:44→16:47)
[2020-12-18] MEDS: SKINTEGRITY HYDROGEL TP SCH (08:44)
[2020-12-18] MEDS: ESCITALOPRAM 20 MG TAB GT SCH (08:47)
[2020-12-18] MEDS: amLODIPine 5 MG TAB GT SCH (08:48)
[2020-12-18] MEDS: ASCORBIC ACID 500 MG/5 ML ORASYR GT SCH (08:48)
[2020-12-18] MEDS: PANTOPRAZOLE 40 MG INJ VIAL IVP SCH (08:49)
[2020-12-18] MEDS: FERROUS SULFATE 325 MG TABEC PO SCH ×2 (08:49→16:48)
[2020-12-18] MEDS: VIT-B COMP/VIT-C/FOLIC ACID 1 TAB PO SCH (08:49)
[2020-12-18] MEDS: APIXABAN 2.5 MG TAB GT SCH ×2 (08:52→20:34)
--- NOTE | 2020-12-18 08:55 | NUR ---
ALL SCHEDULED MEDS GIVEN. PT IS STABLE. NO S/S OF RESPIRATORY DISTRESS NOTED. WILL CONTINUE TO MONITOR.
[2020-12-18] MEDS ORDERED: NON-FORMULARY ITEM (Lansoprazole* (Prevacid 24Hr*) 15 MG) GT SCH (09:00)
--- NOTE | 2020-12-18 09:55 | NUR ---
HEMODIALYSIS TREATMENT ENDED EARLY DUE TO INFILTRATION. 1.5 L FLUIDS WERE REMOVED. PT IS STABLE. NO DISTRESS NOTED. WILL CONTINUE TO MONITOR.
--- NOTE | 2020-12-18 10:00 | NUR ---
PATIENT FAMILY AT PATIENT'S BEDSIDE.
[2020-12-18] MEDS: EPOETIN ALFA-EPBX 10,000 UNITS/ML VIAL IV SCH (10:14)
[2020-12-18 10:49] LABS: ANION GAP 9.5 (8-16); CARBON DIOXIDE 28.6 mmol/L (21-32); CREATININE 1.4 mg/dL (0.6-1.3); POTASSIUM 3.1 mmol/L (3.5-5.1)
--- NOTE | 2020-12-18 11:15 | NUR ---
SPOKE TO DR. BALDERRAMA REGARDING PATIENT REGARDING PATIENT'S GJ TUBE. NOTIFIED THAT THE J PORT OF THE GJ TUBE IS OCCLUDED. TOLD THAT PATIENT IS EATING AND TAKING MEDICATIONS BY MOUTH. IS AWARE AND WILL ASSESS GJ TUBE SOON POSSIBLE AND TO CONTINUE MECHANICAL SOFT RENAL DIET.
[2020-12-18] MEDS: HYDROcodone/APAP 7.5/325 MG 1 TAB PO PRN ×2 (11:44→17:01)
--- NOTE | 2020-12-18 11:44 | NUR ---
PATIENT COMPLAINED OF SACRUM PAIN 12/02. ADMINISTERED NORCO 7.5 PRN PER MD ORDERED.
[2020-12-18 12:00] VITALS: BP 140/84
[2020-12-18] MEDS: INSULIN LISPRO SLIDING SCALE 100 UNITS/ML VIAL SUBQ PRN ×2 (12:17→18:57)
--- NOTE | 2020-12-18 12:17 | NUR ---
BLOOD GLUCOSE CHECK IS 186. INSULIN COVERAGE NEEDED. ADMINISTERED 2 UNITS OF INSULIN SQ PER MD ORDERED.
--- NOTE | 2020-12-18 13:22 | NUR ---
ASLEEP RESTING COMFORTABLY NO INDICATIONS OF PULMONARY DISTRESS NOTED GOOD CHEST RISE DEEP TRACHEAL SUCTION FOR SMALL THICK TO THIN YELLOW SECRETIONS AIRWAY PATENT CHANGED AEROSOL STERILE WATER AND HUMIDIFIER TRACH CARE DONE NOTED INNER CANNULA CLEANED TOLERATED PROCEDURE WELL WITHOUT INCIDENT Addendum: 12/18/20 at 1350 by Calixto Carney RT ACTUAL TIME OF SERVICE 1322 / ARTHUR VALVE OFF AT THIS TIME
--- NOTE | 2020-12-18 13:30 | NUR ---
WOUND DRESSING CHANGE COMPLETED. KEPT PATIENT CLEAN AND DRY. PATIENT DENIES PAIN AT THE MOMENT. WILL CONTINUE TO MONITOR.
--- NOTE | 2020-12-18 15:50 | NUR ---
CHECKED ON PATIENT. PATIENT ASLEEP. NOTED CHEST RISE AND FALL. NO DISTRESS NOTED. WILL CONTINUE TO MONITOR.
[2020-12-18 16:00] VITALS: BP 143/80
[2020-12-18] MEDS: POTASSIUM CHLORIDE 20% 40 MEQ/15 ML UDC PO PRN (16:51)
--- NOTE | 2020-12-18 17:01 | NUR ---
PATIENT COMPLAINED OF SACRUM PAIN 12/02. ADMINISTERED NORCO 7.5 PRN PER MD ORDERED.
[2020-12-18] MEDS: NACL 0.9% 1,000 ML IV SCH (18:03)
--- NOTE | 2020-12-18 19:18 | NUR ---
ENDORSED TO HOME EXTENSION AGENT NURSE FOR CONTINUITY OF CARE. PT IS STABLE.
--- NOTE | 2020-12-18 19:19 | NUR ---
RECEIVED PATIENT FROM AM NURSE FOR CONTINUITY OF CARE. PATIENT IS RESTING IN BED, RT AT BEDSIDE. A/A/O X3. RESPIRATORY EVEN AND UNLABORED, TRACH TO O2 7L, O2 SAT 100%, NO SIGN OF RESPIRATORY DISTRESS NOTED. SKIN WARM, DRY, NON DIAPHORETIC, SACRAL AND BUTTOCK WOUND WITH DRESSING IN PLACE, CLEAN AND DRY. IV ON RIGHT LOWER LEG, INTACT AND PATENT, IS INFUSING FLUID @60ML/HR. AV SHUNT ON RIGHT ARM FOR HD. LAST HD TODAY WITH 1.5L OUTPUT. G-TUBE IN PLACE, FEEDING WAS HOLD. PATIENT DENIES ANY PAIN OR DISCOMFORT. ABLE TO MAKE NEEDS KNOWN. PLAN OF CARE DISCUSSED, PATIENT VERBALIZED UNDERSTANDING. PRECAUTION IN PLACE. CALL LIGHT WITHIN REACH. WILL CONTINUE TO MONITOR.
[2020-12-18 20:00] VITALS: BP 144/80
--- NOTE | 2020-12-18 20:35 | NUR ---
BLOOD SUGAR CHECK 147, NO INSULIN NEEDS TO COVER. SCHEDULE MEDICATIONS GIVEN WITH EDUCATION, PATIENT VERBALIZED UNDERSTANDING. PATIENT TOLERATED WELL. PRECAUTION IN PLACE. CALL LIGHT WITHIN REACH. WILL CONTINUE TO MONITOR.
--- NOTE | 2020-12-18 22:00 | NUR ---
RT AT BEDSIDE. PATIENT IS RESTING IN BED, AROUSABLE TO VOICE. NO SIGN OF RESPIRATORY DISTRESS NOTED. HOB ELEVATED. PRECAUTION IN PLACE. CALL LIGHT WITHIN REACH. WILL CONTINUE TO MONITOR.
[2020-12-19] VITALS: BP 161/86
[2020-12-19] MEDS: hydrALAZINE 20 MG/ML VIAL IVP PRN (00:29)
--- NOTE | 2020-12-19 00:29 | NUR ---
HYDRALAZINE PRN GIVEN FOR ELEVATED BP 161/86, HR 93. EDUCATION GIVEN. PATIENT TOLERATED WELL. NO SIGN OF DISTRESS NOTED. PRECAUTION IN PLACE. CALL LIGHT WITHIN REACH. WILL CONTINUE TO MONITOR.
[2020-12-19] MEDS: ALBUTEROL SULFATE/IPRATROPIU 3 ML SOL IH SCH ×4 (01:10→19:00)
--- NOTE | 2020-12-19 01:29 | NUR ---
RECHECK BP 140/78, HR 94, PATIENT IS SLEEPING, CHEST RISE AND FALL NOTED. NO SIGN OF DISTRESS NOTED. PRECAUTION IN PLACE. CALL LIGHT WITHIN REACH. WILL CONTINUE TO MONITOR.
[2020-12-19 04:00] VITALS: BP 142/78
--- NOTE | 2020-12-19 04:00 | NUR ---
ROUND CHECK. PATIENT IS SLEEPING, CHEST RISE AND FALL, NO SIGN OF RESPIRATORY DISTRESS, O2 SAT 99%. PRECAUTION IN PLACE, HOB ELEVATED. CALL LIGHT WITHIN REACH. WILL CONTINUE TO MONITOR.
--- NOTE | 2020-12-19 05:25 | NUR ---
RT NOTIFIED THAT PATIENT PULLED OUT HER TRACH. PATIENT IS CALM AND COOPERATIVE. RESPIRATORY EVEN AND UNLABORED, NO SIGN OF DISTRESS NOTED, O2 SAT 99%. NOTIFIED ER DR PAUL.
--- NOTE | 2020-12-19 05:35 | NUR ---
DR PAUL AT BEDSIDE WITH RT. DR PAUL PUTS A TRACH TUBE BACK IN AND INFLATE THE CUFF. PATIENT TOLERATED WELL. NO DISTRESS NOTED. O2 SAT 98%. WILL NOTIFY ATTENDING
[2020-12-19] MEDS: CLINDAMYCIN 600 MG in DEXTROSE 5% 50 ML IV SCH ×3 (05:50→20:33)
--- NOTE | 2020-12-19 06:01 | NUR ---
CHECKED ON PT FOR TRACH CARE AND FOUND PT WITH TRACH OUT. DR PAUL WAS CALLED AT BEDSIDE PUT TH TRACH BACK IN
--- NOTE | 2020-12-19 06:06 | NUR ---
CHECKED ON PT FOR TRACH CARE AND FOUND PT WITH TRACH OUT @ 0500. DR PAUL WAS CALLED AT BEDSIDE AND WAS ABLE TO PUT THE TRACH BACK IN (EMMIE #4). CUFF INFLATED. NO RESPIRATORY DISTRESS NOTED, PT SATING 99% ON 28% COOL AEROSOL. WILL CONTINUE TO MONITOR.
--- NOTE | 2020-12-19 06:18 | NUR ---
NOTIFIED DR LAM, WAITING FOR RESPONSE.
[2020-12-19 06:24] LABS: ANION GAP 9.6 (8-16); CARBON DIOXIDE 26.6 mmol/L (21-32); CREATININE 1.8 mg/dL (0.6-1.3); POTASSIUM 4.2 mmol/L (3.5-5.1)
[2020-12-19] MEDS: BLOOD GLUCOSE MONITORING 1 DEV DEV FS SCH ×4 (06:37→20:33)
[2020-12-19 06:53] LABS: BASOPHILS # (AUTO) 0.1 K/uL (0.00-0.22); BASOPHILS % (AUTO) 1.3 % (0.0-2.0); EOSINOPHILS # (AUTO) 0.1 K/uL (0-0.4); EOSINOPHILS % (AUTO) 1.8 % (0.0-4.0); HEMATOCRIT 20.8 % (36-48); LYMPHOCYTES # (AUTO) 0.9 K/uL (2.5-16.5); LYMPHOCYTES % (AUTO) 12.8 % (20.5-51.1); MEAN CORPUSCULAR HEMOGLOBIN 32 pg (27-31); MEAN CORPUSCULAR HGB CONC 33 g/dL (33-37); MEAN CORPUSCULAR VOLUME 96.6 fL (80-94); MONOCYTES # (AUTO) 0.5 K/uL (0.8-1.0); MONOCYTES % (AUTO) 7.3 % (1.7-9.3); NEUTROPHILS # (AUTO) 5.5 K/uL (1.8-7.7); NEUTROPHILS % (AUTO) 76.8 % (42.2-75.2); PLATELET COUNT (AUTO) 512 K/uL (140-450); RED BLOOD CELL COUNT(AUTO) 2.15 MIL/uL (4.20-5.40); RED CELL DISTRIBUTION WIDTH 18.5 % (11.6-13.7); WHITE BLOOD COUNT (AUTO) 7.2 K/uL (4.8-10.8)
--- NOTE | 2020-12-19 06:59 | NUR ---
RECEIVED CRITICAL LAB VALUES, HEMOGLOBIN 6.9 AND HEMATOCRIT 20.8, TEXTED DR ESCOBEDO, WAITING FOR RESPONSE.
[2020-12-19 07:00] LABS: HEMOGLOBIN 6.9 g/dL (12.0-16.0)
--- NOTE | 2020-12-19 07:25 | NUR ---
ENDORSED PATIENT TO AM NURSE FOR CONTINUITY OF CARE. PATIENT IS STABLE.
--- NOTE | 2020-12-19 07:27 | NUR ---
RECEIVED BEDSIDE REPORT FROM SMOKING PIPE MAKER NURSE FOR CONTINUITY OF CARE. PATIENT IS A/A/O X4, ABLE TO MAKE NEEDS KNOWN. RESPIRATORY EVEN AND UNLABORED, TRACH TO O2 8L WITH HUMIDIFIER AND FIO2 28%. NO SIGNS OF RESPIRATORY DISTRESS NOTED. PATIENT REMOVED TRACH LAST NIGHT. REINSERTED BY ER DOCTOR. SKIN WARM AND DRY. IV ON RIGHT LOWER LEG 20G INFUSING FLUIDS WELL. INTACT AND PATENT. AV SHUNT NOTED ON RIGHT FA FOR HEMODIALYSIS. G-TUBE IS OCCLUDED. MD IS AWARE. NOTED SACRAL AND BUTTOCK WOUND WITH DRESSING IN PLACE C/D/I. PLAN OF CARE DISCUSSED, PATIENT VERBALIZED UNDERSTANDING. PRECAUTION IN PLACE. CALL LIGHT WITHIN REACH. WILL CONTINUE TO MONITOR. Addendum: 12/19/20 at 0953 by Pranay Maloney RN RN 7L O2*
[2020-12-19 08:00] VITALS: BP 133/76
--- NOTE | 2020-12-19 08:10 | NUR ---
RECEIVED NEW ORDERS FROM TO HOLD ELIQUIS DUE TO LOW HGB
--- NOTE | 2020-12-19 08:39 | NUR ---
(12/19/20) RD FOLLOW UP COMPLETED PLEASE REFER TO NUTRITION PROGRESS NOTE UNDER CARE ACTIVITY FOR ESTIMATED NUTRITION NEEDS. RD RECOMMENDATIONS: 1. CONTINUE RENAL MECHANICAL SOFT DIET TOLERATED 2. CONTINUE NEPRO 1.8 @ 40 ML/HR WITH PROSOURCE ONCE DAILY. THIS WILL PROVIDE 1788 KCAL AND 93 GM OF PROTEIN. MEETING 100% OF KCAL AND PROTEIN NEEDS 3. CONTINUE VITAMIN C 500 MG BID AND NEPHRO-PAMELA ONCE DAILY 4. RD TO FOLLOW-UP 2-3 DAYS, HIGH RISK SHEA TITUS, , RDN
[2020-12-19] MEDS: FERROUS SULFATE 325 MG TABEC PO SCH ×2 (08:59→16:47)
[2020-12-19] MEDS: ESCITALOPRAM 20 MG TAB GT SCH (08:59)
[2020-12-19] MEDS: PANTOPRAZOLE 40 MG INJ VIAL IVP SCH (09:00)
[2020-12-19] MEDS: ASCORBIC ACID 500 MG/5 ML ORASYR GT SCH (09:00)
[2020-12-19] MEDS: ERYTHROMYCIN ETHYLSUCCINATE SUSP 200 MG/5 ML UDC PO SCH ×3 (09:00→16:47)
[2020-12-19] MEDS: amLODIPine 5 MG TAB GT SCH (09:00)
--- NOTE | 2020-12-19 09:00 | NUR ---
PATIENT REQUESTED TO BE SUCTIONED. PATIENT TOLERATED SUCTION AND VERBALIZED RELIEF. O2 SAT AT 98%. NO RESPIRATORY DISTRESS NOTED. WILL CONTINUE TO MONITOR.
[2020-12-19] MEDS: VIT-B COMP/VIT-C/FOLIC ACID 1 TAB PO SCH (09:01)
[2020-12-19] MEDS: SKINTEGRITY HYDROGEL TP SCH (09:01)
[2020-12-19] MEDS: NACL 0.9% 1,000 ML IV SCH (10:13)
[2020-12-19] MEDS ORDERED: LACTULOSE 20 GM/30 ML UDC PO ONE (10:25)
[2020-12-19] MEDS: INSULIN LISPRO SLIDING SCALE 100 UNITS/ML VIAL SUBQ PRN ×2 (11:52→17:36)
--- NOTE | 2020-12-19 11:56 | NUR ---
BLOOD SUGAR CHECK WAS 217. INSULIN COVERAGE NEEDED. ADMINISTERED 4 UNITS OF INSULIN SQ PER MD ORDERED.
[2020-12-19 12:00] VITALS: BP 138/81
--- NOTE | 2020-12-19 12:30 | NUR ---
PATIENT REQUESTED TO BE SUCTIONED. PATIENT TOLERATED SUCTION AND VERBALIZED RELIEF. O2 SAT AT 100%. NO RESPIRATORY DISTRESS NOTED. WILL CONTINUE TO MONITOR.
[2020-12-19] MEDS: HYDROcodone/APAP 7.5/325 MG 1 TAB PO PRN ×2 (12:49→17:00)
--- NOTE | 2020-12-19 12:49 | NUR ---
PATIENT COMPLAINED OF SACRUM PAIN 12/02. ADMINISTERED NORCO 7.5 PRN PER MD ORDERED.
--- NOTE | 2020-12-19 12:57 | NUR ---
ALL SCHEDULED MEDS GIVEN. PT IS STABLE. NO DISTRESS NOTED. WILL CONTINUE TO MONITOR.
--- NOTE | 2020-12-19 13:35 | NUR ---
ASLEEP EASILY AWAKENS STABLE NO EVIDENCE OF PULMONARY DISTRESS NOTED EQUAL CHEST RISE PASSY-MARY VALVE (PMV) ON WITH TRACHEOSTOMY TUBE CUFF DEFLATED PMV REMOVED TO FACILITATE HHN THERAPY
--- NOTE | 2020-12-19 13:45 | NUR ---
DAUGHTER'S CURRENTLY AT BEDSIDE PLACED PASSY-MARY VALVE (PMV) BACK ON TRACHEOSTOMY TUBE TO FACILITATE CONVERSATION WITH FAMILY MEMBERS HEAD TENNIS PROFESSIONAL TO ATTEMPT TRACHEOSTOMY CARE AT A LATER TIME STERILE WATER AND AEROSOL MIST BARREL CHANGED Addendum: 12/19/20 at 1417 by Calixto Carney RT RECHECKED TRACHEOSTOMY TUBE CUFF FOR DEFLATION
--- NOTE | 2020-12-19 13:55 | NUR ---
STARTED ADMINISTRATION OF 1 UNIT OF PRBC. PRE-VITALS WERE STABLE. PATIENT DENIES PAIN OR DISCOMFORT. WILL CONTINUE TO MONITOR. Addendum: 12/19/20 at 1533 by Pranay Maloney RN RN VERIFIED WITH 2ND NURSE.
[2020-12-19] MEDS: MORPHINE SULFATE 2 MG/ML SYR IVP PRN (15:22)
--- NOTE | 2020-12-19 15:22 | NUR ---
PATIENT COMPLAINED OF SACRUM PAIN 03/04. ADMINISTERED MORPHINE IVP PRN PER MD ORDERED.
[2020-12-19 16:00] VITALS: BP 124/75
--- NOTE | 2020-12-19 16:07 | NUR ---
TRACHEOSTOMY CARE COMPLETED INNER CANNULA CLEANED/BRUSHED AND RINSED TOLERATED PROCEDURE WELL WITHOUT COMPLICATIONS NOTED TRACHEOSTOMY MASK REPLACED PASSY-MARY (PMV) PLACED BACK ON TRACHEOSTOMY TUBE FOR FACILITATION OF SPEAKING WITH HEALTHCARE WORKERS CUFF PRESSURE CHECKED - DEFLATED
--- NOTE | 2020-12-19 17:00 | NUR ---
OBTAINED OCCULT SAMPLE. CHANGE PATIENT'S SHEETS AND CHANGED SOILED PAD. KEPT DRY AND CLEAN. DRESSING INTACT. PT DENIES PAIN. WILL CONTINUE TO MONITOR
--- NOTE | 2020-12-19 17:36 | NUR ---
BLOOD GLUCOSE CHECK WAS 169. INSULIN COVERAGE NEEDED. ADMINISTERED 2 UNITS OF INSULIN SQ PER MD ORDERED.
--- NOTE | 2020-12-19 18:00 | NUR ---
PATIENT COMPLETED BLOOD TRANSFUSION OF 1 UNIT. DENIES ANY PAIN OR DISCOMFORT. PT POST VITAL SIGNS WERE STABLE. WILL CONTINUE TO MONITOR.
--- NOTE | 2020-12-19 18:20 | NUR ---
PATIENT REMOVED TRACH. CONTACTED RT AND THEY ASSESSED PATIENTS TRACH. ER DOCTOR NOTIFIED.
--- NOTE | 2020-12-19 18:34 | NUR ---
ER DOCTOR AND RT AT PATIENT'S BEDSIDE. ER DOCTOR WILL TRY TO REINSERT TRACH BACK.
--- NOTE | 2020-12-19 18:40 | NUR ---
ER DOCTOR ATTEMPTED TO PLACE TRACH BACK ON PATIENT BUT DID NOT SUCCEED. PATIENT'S O2 SATURATION IS AT 98%. ER MENTIONED THAT PATIENT DOES NOT TRACH PLACE BACK DUE TO PATIENT STABLE CONDITION. NO DISTRESS AT THE MOMENT. WILL NOTIFIED MD ABOUT CURRENT SITUATION
--- NOTE | 2020-12-19 18:53 | NUR ---
NOTIFIED MD THAT PATIENT PULLED TRACH OUT. AWAITING FOR MD RESPONSE.
--- NOTE | 2020-12-19 18:55 | NUR ---
CLEANED AND PLACED GAUZE PAD OVER TRACH STOMA. NO DRAINAGE WAS NOTED. C/D/I/
--- NOTE | 2020-12-19 18:56 | NUR ---
APPROX 18:40 CALLED TO BEDSIDE TRACH WAS OUT. UPON ARRIVAL TRACH WAS OUT AND STOMA APPEARED TO BE CLOSING. ED DR LEHMAN WAS CALLED TO BEDSIDE AND WAS UNABLE TO REPLACE TRACH. PT APPEARS TO BE COMFORTABLE W/ NO DISTRESS NOTED. CURRENT SPO2 98% AND HR MID 80s. APPROX 18:[address] MEZA WAS CONTACTED AND INFORMED OF INCIDENT. ALONG W/ PT CURRENT CONDITION. PER DR MEZA ABG IN 1 HR WILL CONTINUE TO MONITOR
--- NOTE | 2020-12-19 19:25 | NUR ---
ENDORSED TO AIR BRAKE WORKER NURSE FOR CONTINUITY OF CARE. PT IS STABLE.
--- NOTE | 2020-12-19 19:30 | NUR ---
REPORT GIVEN FROM AM SHIFT NURSE. PATIENT ON BED WELL RESTED. NO ACUTE DISTRESS NOTED. RESPIRATION EVEN UNLABORED. JEJUNOSTOMY CONNECTED TO A DRAINAGE BAG. IVF INFUSING ON THE RIGHT LOWER LEG. CALL LIGHT WITHIN REACH. DENIES PAIN. WILL CONTINUE TO MONITOR.
[2020-12-19 20:00] VITALS: BP 138/81
--- NOTE | 2020-12-19 20:33 | NUR ---
ADMINISTERED SCHEDULED MEDS ORDERED.
--- NOTE | 2020-12-19 20:37 | NUR ---
DR MEZA INFORMED OF ABG RESULTS WILL CONTINUE TO MONITOR
--- NOTE | 2020-12-19 22:55 | NUR ---
PT SLEEPING COMFORTABLY W/ NO DISTRESS NOTED. CURRENT SPO2 99% HR 90 WILL CONTINUE TO MONITOR
--- NOTE | 2020-12-20 | NUR ---
CHECKED PATIENT SLEEPING
[2020-12-20] MEDS: ALBUTEROL SULFATE/IPRATROPIU 3 ML SOL IH SCH ×4 (01:05→18:55)
--- NOTE | 2020-12-20 01:05 | NUR ---
PT IS SLEEPING AND HAS A SATURATION OF 96% ON ROOM AIR, WOKE PT FOR BREATHING TREATMENT, PT SAID SHE WANTED TO SLEEP AND TO COME BACK LATER. PTS BREATH SOUNDS ARE CLEAR BILATERALLY. WILL CONTINUE TO MONITOR.
[2020-12-20] MEDS: NACL 0.9% 1,000 ML IV SCH (02:40)
[2020-12-20 04:00] VITALS: BP 164/94
[2020-12-20] MEDS: CLINDAMYCIN 600 MG in DEXTROSE 5% 50 ML IV SCH ×3 (04:37→20:39)
--- NOTE | 2020-12-20 05:14 | NUR ---
PT SLEEPING COMFORTABLY ON RA W/ SPO2 97% HR 99 f20 WILL CONTINUE TO MONITOR
[2020-12-20] MEDS: HYDROcodone/APAP 7.5/325 MG 1 TAB PO PRN (06:20)
--- NOTE | 2020-12-20 06:21 | NUR ---
COMPLAINED OF MODERATE PAIN ON HER BACK, NORCO PRN GIVEN ORDERED.
[2020-12-20] MEDS: BLOOD GLUCOSE MONITORING 1 DEV DEV FS SCH ×4 (06:45→20:50)
[2020-12-20] MEDS: INSULIN LISPRO SLIDING SCALE 100 UNITS/ML VIAL SUBQ PRN ×2 (06:46→17:06)
--- NOTE | 2020-12-20 07:20 | NUR ---
ENDORSED TO AM SHIFT NURSE FOR CONTINUITY OF CARE. PATIENT IS STABLE
--- NOTE | 2020-12-20 07:25 | NUR ---
RECEIVED BEDSIDE REPORT FROM NURSERY HELPER NURSE. PATIENT IS A/A/O X4, ABLE TO MAKE NEEDS KNOWN. PLAN OF CARE DISCUSSED, PATIENT VERBALIZED UNDERSTANDING. PRECAUTIONS IN PLACE. CALL LIGHT WITHIN REACH.
[2020-12-20 08:00] VITALS: BP 116/90
[2020-12-20] MEDS: amLODIPine 5 MG TAB GT SCH (08:28)
[2020-12-20] MEDS: ESCITALOPRAM 20 MG TAB GT SCH (08:28)
[2020-12-20] MEDS: VIT-B COMP/VIT-C/FOLIC ACID 1 TAB PO SCH (08:29)
[2020-12-20] MEDS: FERROUS SULFATE 325 MG TABEC PO SCH ×2 (08:29→17:31)
[2020-12-20] MEDS: EPOETIN ALFA-EPBX 10,000 UNITS/ML VIAL IV SCH (08:30)
[2020-12-20] MEDS: PANTOPRAZOLE 40 MG INJ VIAL IVP SCH (08:30)
[2020-12-20] MEDS: ASCORBIC ACID 500 MG/5 ML ORASYR GT SCH (08:31)
--- NOTE | 2020-12-20 08:40 | NUR ---
MEDICATIONS GIVEN PER MD ORDER. PATIENT EDUCATED AND TOLERATED WELL. PT A&O X4. PT HAS CLEAR, UNLABORED LUNG SOUNDS. CALL LIGHT WITHIN REACH. ALL SAFETY MEASURES ARE IN PLACE.
[2020-12-20] MEDS: SKINTEGRITY HYDROGEL TP SCH (09:31)
--- NOTE | 2020-12-20 11:24 | NUR ---
PATIENT IS SLEEPING, CHEST RISE AND FALL, NO SIGN OF RESPIRATORY DISTRESS, O2 SAT 98%. HOB ELEVATED. CALL LIGHT WITHIN REACH.
[2020-12-20] MEDS: ONDANSETRON 4 MG/2 ML VIAL IM/IVP PRN (11:39)
--- NOTE | 2020-12-20 11:40 | NUR ---
PT C/O NAUSEA AND VOMITING, ZOFRAN GIVEN PER PRN ORDER AT THIS TIME, REPORTED TO PRIMARY NURSE CHA NOW AT BEDSIDE.
--- NOTE | 2020-12-20 11:41 | NUR ---
100 ,MLS EMESIS OUTPUT. TISSUES AND ORAL RINSE PROVIDED.
--- NOTE | 2020-12-20 11:50 | NUR ---
BLOOD GLUCOSE WAS 132. NO INSULIN COVERAGE NEEDED. PT TOLERATED. CALL LIGHT WITHIN REACH.
[2020-12-20 12:00] VITALS: BP 137/82
[2020-12-20 12:42] LABS: BASOPHILS # (AUTO) 0.1 K/uL (0.00-0.22); BASOPHILS % (AUTO) 0.9 % (0.0-2.0); EOSINOPHILS # (AUTO) 0.5 K/uL (0-0.4); EOSINOPHILS % (AUTO) 4.8 % (0.0-4.0); HEMATOCRIT 23.9 % (36-48); HEMOGLOBIN 8.1 g/dL (12.0-16.0); LYMPHOCYTES # (AUTO) 0.8 K/uL (2.5-16.5); MEAN CORPUSCULAR HEMOGLOBIN 32 pg (27-31); MEAN CORPUSCULAR HGB CONC 34 g/dL (33-37); MEAN CORPUSCULAR VOLUME 94.9 fL (80-94); MONOCYTES # (AUTO) 0.6 K/uL (0.8-1.0); MONOCYTES % (AUTO) 5.5 % (1.7-9.3); NEUTROPHILS # (AUTO) 8.1 K/uL (1.8-7.7); NEUTROPHILS % (AUTO) 80.8 % (42.2-75.2); PLATELET COUNT (AUTO) 547 K/uL (140-450); RED BLOOD CELL COUNT(AUTO) 2.52 MIL/uL (4.20-5.40); RED CELL DISTRIBUTION WIDTH 17.4 % (11.6-13.7); WHITE BLOOD COUNT (AUTO) 10.1 K/uL (4.8-10.8)
[2020-12-20] MEDS: guaiFENesin DM 200/20 MG-10 ML 10 ML UDC PO PRN (12:47)
--- NOTE | 2020-12-20 12:48 | NUR ---
PT STATES SHE HAS A COUGH WITH PHLEGM. GAVE PRN MEDICATION PER MD ORDER FOR COUGH. PT EDUCATED. PT IN BED AND EATING LUNCH. PT TOLERATING WELL. ALL SAFETY MEASURES ARE IN PLACE.
[2020-12-20 13:01] LABS: ANION GAP 9.5 (8-16); CARBON DIOXIDE 24.8 mmol/L (21-32); CREATININE 2.3 mg/dL (0.6-1.3); POTASSIUM 4.3 mmol/L (3.5-5.1)
[2020-12-20 13:13] LABS: PHOSPHORUS 4.4 mg/dL (2.5-4.9)
--- NOTE | 2020-12-20 13:35 | NUR ---
PT STATES PAIN 8/10 IN LOWER LEGS. PAIN WAS SLIGHTLY RELIEVED WITH POSITION CHANGE. GAVE PAIN MEDICATION PER MD ORDER. WILL REEVALUATE PAIN. CALL LIGHT WITHIN REACH.
[2020-12-20] MEDS: MORPHINE SULFATE 2 MG/ML SYR IVP PRN ×2 (13:38→20:43)
--- NOTE | 2020-12-20 15:42 | NUR ---
DR BALDERRAMA ON THE PHONE WITH PT'S NATHALIE REGARDING EGD.
[2020-12-20 16:00] VITALS: BP 136/83
--- NOTE | 2020-12-20 16:00 | NUR ---
PT APPEARS TO BE RESTING. EYES CLOSED. NO S/S OF DISTRESS. CALL LIGHT WITHIN REACH.
--- NOTE | 2020-12-20 16:40 | NUR ---
BG IS 198. INSULIN GIVEN PER MD ORDER PER SLIDING SCALE. PT TOLERATED. PT ABLE TO MAKE NEEDS KNOWN. ALL SAFETY MEASURES IN PLACE.
--- NOTE | 2020-12-20 18:00 | NUR ---
PT RESTING IN BED. UNLABORED BREATHING, O2 98%, NO S/S OF DISTRESS. ALL SAFETY MEASURES IN PLACE.
--- NOTE | 2020-12-20 19:41 | NUR ---
PT ENDORSED TO CASH APPLICATIONS COORDINATOR NURSE. NO S/S OF DISTRESS. ALL SAFETY MEASURES IN PLACE.
--- NOTE | 2020-12-20 19:42 | NUR ---
RECEIVED PT IN STABLE CONDITION FROM AM NURSE. PT ON TELE MONITOR. BEDREST. TRACH SITE WITH DRESSING. WITH NO SOB NOTED. NO C/O ANY DISCOMFORT AT THIS TIME. IV ACCESS ON THE RT LOWER LEG. WITH HAS JEJUNOSTOMY TUBE AND GASTRIC TUBE. GASTRIC TUBE DRAINING GREENISH LIQUIDS. HAS HD ACCESS ON THE RT LOWER ARM AV SHUNT . FREQ ROUNDS NEEDED. BED LOWEST POSITION. SIDE RAILS UP X2. CALL LIGHT WITHIN EASY REACH. WILL CONTINUE TO MONITOR.
[2020-12-20 20:00] VITALS: BP 127/82
--- NOTE | 2020-12-20 21:43 | NUR ---
MADE ROUNDS. PT IS SLEEPING AT THIS TIME. NO S/S OF ANY DISCOMFORT NOR PAIN NOTED.
[2020-12-21] VITALS: BP 139/79
[2020-12-21] MEDS: ONDANSETRON 4 MG/2 ML VIAL IM/IVP PRN (00:10)
--- NOTE | 2020-12-21 00:10 | NUR ---
C/O NAUSEA. MEDICATED WITH ZOFRAN ORDERED. WILL CONTINUE TO MONITOR.
[2020-12-21] MEDS: MORPHINE SULFATE 2 MG/ML SYR IVP PRN ×6 (00:56→22:53)
[2020-12-21] MEDS: ALBUTEROL SULFATE/IPRATROPIU 3 ML SOL IH SCH ×4 (01:02→19:52)
--- NOTE | 2020-12-21 02:00 | NUR ---
PT SACRAL DRESSING WITH MODERATE DRAINAGE, DRESSING WAS CHANGED ORDERED.
[2020-12-21 04:00] VITALS: BP 150/79
[2020-12-21] MEDS: CLINDAMYCIN 600 MG in DEXTROSE 5% 50 ML IV SCH ×3 (04:30→20:14)
--- NOTE | 2020-12-21 05:30 | NUR ---
MADE ROUNDS. CHECKED ON PT, ASLEEP. NO S/S OF PAIN NOTED.
[2020-12-21] MEDS: BLOOD GLUCOSE MONITORING 1 DEV DEV FS SCH ×4 (06:23→20:17)
--- NOTE | 2020-12-21 06:25 | NUR ---
LATEST BS THIS AM 136. NO INSULIN NEEDED.
[2020-12-21 06:47] LABS: BASOPHILS # (AUTO) 0.1 K/uL (0.00-0.22); BASOPHILS % (AUTO) 0.8 % (0.0-2.0); EOSINOPHILS # (AUTO) 0.3 K/uL (0-0.4); EOSINOPHILS % (AUTO) 2.6 % (0.0-4.0); HEMATOCRIT 22.7 % (36-48); HEMOGLOBIN 7.7 g/dL (12.0-16.0); LYMPHOCYTES # (AUTO) 0.9 K/uL (2.5-16.5); LYMPHOCYTES % (AUTO) 8.9 % (20.5-51.1); MEAN CORPUSCULAR HEMOGLOBIN 32 pg (27-31); MEAN CORPUSCULAR HGB CONC 34 g/dL (33-37); MEAN CORPUSCULAR VOLUME 94.7 fL (80-94); MONOCYTES # (AUTO) 0.5 K/uL (0.8-1.0); MONOCYTES % (AUTO) 5.3 % (1.7-9.3); NEUTROPHILS # (AUTO) 8.4 K/uL (1.8-7.7); NEUTROPHILS % (AUTO) 82.4 % (42.2-75.2); PLATELET COUNT (AUTO) 565 K/uL (140-450); RED BLOOD CELL COUNT(AUTO) 2.39 MIL/uL (4.20-5.40); WHITE BLOOD COUNT (AUTO) 10.2 K/uL (4.8-10.8)
[2020-12-21 06:54] LABS: ANION GAP 11.3 (8-16); CARBON DIOXIDE 23.3 mmol/L (21-32); CREATININE 2.6 mg/dL (0.6-1.3); POTASSIUM 4.6 mmol/L (3.5-5.1)
[2020-12-21 06:57] LABS: MAGNESIUM 2.1 mg/dL (1.8-2.4); PHOSPHORUS 5.1 mg/dL (2.5-4.9)
--- NOTE | 2020-12-21 07:21 | NUR ---
ENDORSED TO AM NURSE FOR CONTINUITY OF CARE
[2020-12-21 08:00] VITALS: BP 157/88
[2020-12-21] MEDS: FERROUS SULFATE 325 MG TABEC PO SCH ×3 (08:00→17:51)
[2020-12-21] MEDS: amLODIPine 5 MG TAB GT SCH (09:00)
[2020-12-21] MEDS: SKINTEGRITY HYDROGEL TP SCH (09:00)
[2020-12-21] MEDS: PANTOPRAZOLE 40 MG INJ VIAL IVP SCH (09:00)
[2020-12-21] MEDS: EPOETIN ALFA-EPBX 10,000 UNITS/ML VIAL IV SCH (09:00)
[2020-12-21] MEDS: ASCORBIC ACID 500 MG/5 ML ORASYR GT SCH (09:00)
[2020-12-21] MEDS: ESCITALOPRAM 20 MG TAB GT SCH (09:00)
[2020-12-21] MEDS: VIT-B COMP/VIT-C/FOLIC ACID 1 TAB PO SCH (09:00)
--- NOTE | 2020-12-21 09:10 | NUR ---
SCHEDULED 9AM MEDS NOT ADMINISTERED PATIENT WILL BE HAVING A PROCEDURE TODAY. PRN MORPHINE ADMINISTERED FOR BACK PAIN, SEE PAIN ASSESSMENT COMMENTS.
--- NOTE | 2020-12-21 10:54 | NUR ---
DIALYSIS ARRIVING TO BEDSIDE AT THIS TIME. PATIENT SUPINE IN BED, WATCHING TELEVISION. STABLE AT THIS TIME.
[2020-12-21 12:00] VITALS: BP 157/91
--- NOTE | 2020-12-21 12:30 | NUR ---
1 UNIT BLOOD PICKED UP FROM BLOOD BANK, TRANSFUSING WITH HD AT THIS MOMENT WITH VESSEL ENGINEER. PATIENT STABLE AT THIS TIME.
--- NOTE | 2020-12-21 13:10 | NUR ---
PATIENT CALLED FOR UPDATE. HE WAS UPDATED ON PATIENT CONDITION, ALL QUESTIONS ANSWERED AT THIS TIME.
--- NOTE | 2020-12-21 13:20 | NUR ---
PT REFUSED TREATMENT DUE TO NAUSEA AND VOMITING.
--- NOTE | 2020-12-21 13:51 | NUR ---
PRN MORPHINE ADMINISTERED FOR PAIN, SEE PAIN ASSESSMENT NOTES. MED EDUCATION PROVIDED, PATIENT VERBALIZES UNDERSTANDING. HD NURSE CONTINUES AT BEDSIDE WITH PATIENT. PATIENT STABLE AT THIS TIME.
--- NOTE | 2020-12-21 14:41 | NUR ---
12/21/20 RD INITIAL ASSESSMENT COMPLETED PLEASE REFER TO NUTRITION ASSESSMENT UNDER CARE ACTIVITY FOR ESTIMATED NUTRITIONAL NEEDS. 1. CURRENTLY NPO FOR PROCEDURE 2. WHEN MEDICALLY CLEARED CONTINUE RENAL MECHANICAL SOFT DIET AND NEPRO 1.8 @ 40 ML/HR WITH PRO-SOURCE ONCE DAILY -THIS WILL PROVIDE 1788 KCAL AND 93 GM OF PROTEIN. MEETING 100% OF KCAL AND PROTEIN NEEDS 3. CONTINUE VITAMIN C 500 MG BID AND NEPHRO-PAMELA ONCE DAILY 4. RD TO FOLLOW-UP 2-3 DAYS, HIGH RISK ANNA SHERMAN RD
[2020-12-21 16:00] VITALS: BP 148/83
--- NOTE | 2020-12-21 17:00 | NUR ---
PATIENT CHANGED AND REPOSITIONED WITH HAND CANDY CUTTER ASSISTANCE. CHANGED ALL DIRTY LINEN. PATIENT NOW COMFORTABLY ON BED WATCHING TELEVISION.
[2020-12-21] MEDS: guaiFENesin DM 200/20 MG-10 ML 10 ML UDC PO PRN (17:51)
--- NOTE | 2020-12-21 17:53 | NUR ---
SCHEDULED MEDICATION, PRN MORPHINE, PRN GUAIFENESIN AND DEXTROMETHORPHAN ORAL SOLUTION ADMINISTERED PER MD ORDER. MED EDUCATION PROVIDED, PATIENT VERBALIZES UNDERSTANDING.
--- NOTE | 2020-12-21 19:06 | NUR ---
ENDORSED TO AIRPLANE AND ENGINE INSPECTOR NURSE FOR CONTINUITY OF CARE. PATIENT STABLE AT THIS TIME.
[2020-12-21 20:00] VITALS: BP 143/78
[2020-12-21 20:11] LABS: HEMATOCRIT 25.5 % (36-48); HEMOGLOBIN 8.6 g/dL (12.0-16.0)
[2020-12-21] MEDS: INSULIN LISPRO SLIDING SCALE 100 UNITS/ML VIAL SUBQ PRN (20:34)
--- NOTE | 2020-12-21 21:29 | NUR ---
SPOKE TO NATHALIE ESTRELLA, , UPDATED REGARDING PT CONDITION AND CURRENT PLAN OF CARE. PER NATHALIE; HE WOULD LIKE TO BE CALLED AND INFORMED ABOUT ANY CHANGES IN PLAN OF CARE REGARDING PROCEDURES OR LABS. ENDORSED FAMILY WISHES TO CHARGE NURSE, AND STAFF NIGHT NURSE. ALSO INFORMED STAFF TO HAVE ADMITTING MD AND GI DOCTOR TO CALL FAMILY TO UPDATE. CHARGE NURSE MADE AWARE. Addendum: 12/21/20 at 2134 by Onur Esteves RN NATHALIE ESTRELLA [phone]
--- NOTE | 2020-12-22 00:05 | NUR ---
KEPT PT NPO AFTER MN. WILL HAVE MD MADE AWARE IF PT NEED IVF WHILE NPO STATUS.
[2020-12-22 00:30] VITALS: BP 198/109
[2020-12-22] MEDS: ALBUTEROL SULFATE/IPRATROPIU 3 ML SOL IH SCH ×4 (00:34→19:00)
[2020-12-22] MEDS: hydrALAZINE 20 MG/ML VIAL IVP PRN ×2 (00:38→12:24)
--- NOTE | 2020-12-22 00:38 | NUR ---
PT BP ELEVATED 198/109, HR-101. MEDICATED WITH HYDRALAZINE 10 MG IVP PRN. WILL CONTINUE TO MONITOR.
--- NOTE | 2020-12-22 01:38 | NUR ---
BP RECHECKED RESULT 172/97, HR-10. PT IS RESTING AT THIS TIME.
[2020-12-22] MEDS: DEXT 5% /NACL 0.9% 1,000 ML IV SCH (03:00)
--- NOTE | 2020-12-22 03:00 | NUR ---
REPOSITIONED FOR COMFORT. DRESSING ON SACRAL AREA CLEAN AND IN PLACED.
[2020-12-22] MEDS: MORPHINE SULFATE 2 MG/ML SYR IVP PRN ×3 (03:31→19:59)
[2020-12-22 04:30] VITALS: BP 169/98
[2020-12-22] MEDS: CLINDAMYCIN 600 MG in DEXTROSE 5% 50 ML IV SCH ×2 (04:47→13:59)
--- NOTE | 2020-12-22 05:00 | NUR ---
MADE ROUNDS. REPOSITIONED AGAIN FOR COMFORT.
[2020-12-22] MEDS: BLOOD GLUCOSE MONITORING 1 DEV DEV FS SCH ×4 (06:00→20:18)
--- NOTE | 2020-12-22 06:00 | NUR ---
PT KEPT NPO SINCE AFTER MN. IVF D5NS INFUSING. BLOOD SUGAR WAS CHECKED AND RESULT 128.
--- NOTE | 2020-12-22 07:15 | NUR ---
ENDORSED PT IN STABLE CONDITION TO AM NURSE FOR CONTINUITY OF CARE.
[2020-12-22 07:20] LABS: ANION GAP 11.8 (8-16); CARBON DIOXIDE 24.6 mmol/L (21-32); CREATININE 1.9 mg/dL (0.6-1.3); POTASSIUM 4.4 mmol/L (3.5-5.1)
[2020-12-22 07:24] LABS: PHOSPHORUS 4.6 mg/dL (2.5-4.9)
--- NOTE | 2020-12-22 07:30 | NUR ---
RECEIVED BEDSIDE REPORT FROM CONTACT CENTER REPRESENTATIVE NURSE. PATIENT IS A/A/O X4, ABLE TO MAKE NEEDS KNOWN. PLAN OF CARE DISCUSSED, PATIENT VERBALIZED UNDERSTANDING. PRECAUTIONS IN PLACE. CALL LIGHT WITHIN REACH.
[2020-12-22 08:00] VITALS: BP 161/89
[2020-12-22] MEDS: FERROUS SULFATE 325 MG TABEC PO SCH ×3 (08:00→17:08)
[2020-12-22] MEDS: SKINTEGRITY HYDROGEL TP SCH (09:00)
[2020-12-22] MEDS: ESCITALOPRAM 20 MG TAB GT SCH ×2 (09:00→09:11)
[2020-12-22] MEDS: ASCORBIC ACID 500 MG/5 ML ORASYR GT SCH ×2 (09:00→09:10)
[2020-12-22] MEDS: VIT-B COMP/VIT-C/FOLIC ACID 1 TAB PO SCH ×2 (09:00→09:10)
[2020-12-22] MEDS: amLODIPine 5 MG TAB GT SCH ×2 (09:00→09:11)
[2020-12-22] MEDS: PANTOPRAZOLE 40 MG INJ VIAL IVP SCH (09:12)
[2020-12-22] MEDS ORDERED: MORPHINE SULFATE 2 MG/ML SYR IVP ONE (09:25)
--- NOTE | 2020-12-22 09:33 | NUR ---
PT REMAINS NPO. NO ORAL MEDS GIVEN PER MED ORDER. PT STATES SHE IS IN A 01/01 PAIN IN HER BACK. POSITION CHANGE AND DISTRACTION TECHNIQUES USED. PT TOLERATED. ALL SAFETY MEASURES IN PLACE. Addendum: 12/22/20 at 0937 by Benjamin Beck RN RN AWARE. RECEIVED ORDERS. AWAITING PHARMACY VERIFICATION.
[2020-12-22] MEDS ORDERED: MORPHINE SULFATE 2 MG/ML SYR IVP SCH (10:15)
--- NOTE | 2020-12-22 10:34 | NUR ---
PAIN MEDICATION PROVIDED PER MD ORDER. PHYSICAL THERAPY IN ROOM WORKING WITH PT. WILL REVALUATE PAIN. ALL SAFETY MEASURES IN PLACE.
--- NOTE | 2020-12-22 11:30 | NUR ---
BG 108. NO INSULIN NEEDED PER SLIDING SCALE. Addendum: 12/22/20 at 1217 by Benjamin Beck RN RN PT TOLERATED. NO S/S OF DISTRESS. PT STATES PAIN WAS RELIEVED FROM MEDICATION AND STATES PAIN IS 2/10. ALL SAFETY MEASURES WITHIN PLACE.
[2020-12-22 12:00] VITALS: BP 164/91
--- NOTE | 2020-12-22 12:28 | NUR ---
BP 164/91, PRN HYDRALAZINE PROVIDED PER MD ORDER. PT EDUCATED ON MEDICATION AND S/E. NO S/S OF DISTRESS. CALL LIGHT WITHIN REACH. ALL SAFETY MEASURES IN PLACE.
--- NOTE | 2020-12-22 13:00 | NUR ---
CHANGED AND ASSESSED PTS SACRAL COCCYGEAL WOUND. DRAINING ON DRESSING WAS MODERATE AND SANGUINEOUS. WOUND CLEANSED, APPLIED GAUZE, AND PUT ABD PAD OVER TOP. PATIENT TOLERATED. ALL SAFETY MEASURES IN PLACE.
--- NOTE | 2020-12-22 13:15 | NUR ---
REEVALUATED BP AFTER GIVING HYDRALAZINE PRN PER MD ORDERS. BP 163/86, PULSE 97. PATIENT RESTING IN BED WITH EYES CLOSED. SYMMETRICAL CHEST EXPANSION. NO S/S OF DISTRESS. ALL SAFETY MEASURES IN PLACE.
--- NOTE | 2020-12-22 13:55 | NUR ---
PT ASSISTED WITH PHONE/. PT TALKED TO
--- NOTE | 2020-12-22 14:20 | NUR ---
PT STATES 7/10 PAIN ON LOWER BACK AND BILATERAL LEGS. PROVIDED POSITION CHANGE AND PRN MEDICATION PER MD ORDER. NO S/S OF DISTRESS. CALL LIGHT WITHIN REACH.
--- NOTE | 2020-12-22 14:37 | NUR ---
OR TEAM PUSHED BACK PROCEDURE
--- NOTE | 2020-12-22 14:37 | NUR ---
OR TEAM IN ROOM. PT HAS NO FURTHER QUESTIONS REGARDING PROCEDURE. PT LEAVING FOR PROCEDURE VIA [place]. PT IN STABLE CONDITION. Addendum: 12/22/20 at 1527 by Benjamin Beck RN RN PROCEDURE WAS PUSHED BACK. PT IS NOW LEAVING VIA [place]ILMAN AT 1527.
--- NOTE | 2020-12-22 15:25 | NUR ---
PT LEFT VIA GURNEY FOR PROCEDURE. PT IN STABLE CONDITION. ALL SAFETY MEASURES ARE PLACE.
[2020-12-22] MEDS ORDERED: fentaNYL citrate 0.05 MG/ML VIAL ONE (15:47)
[2020-12-22] MEDS ORDERED: MIDAZOLAM 5 MG/5 ML VIAL ONE (15:47)
[2020-12-22 16:00] VITALS: BP 148/68
--- NOTE | 2020-12-22 16:30 | NUR ---
PT RETURNED FROM PROCEDURE [place]IA [place]. PT A&0X4. VITAL SIGNS ARE STABLE. BP 136/83, RR 19, HR 95, TEMP 97.3, O2 96%. PT TOLERATED WELL. ALL SAFETY MEASURES IN PLACE. CALLED AND UPDATED AFTER PROCEDURE. HE HAD NO FURTHER QUESTIONS AT THIS TIME.
[2020-12-22] MEDS ORDERED: fentaNYL citrate 0.05 MG/ML VIAL IVP ONE (17:05)
[2020-12-22] MEDS ORDERED: MIDAZOLAM 2 MG/2 ML VIAL IVP ONE (17:05)
--- NOTE | 2020-12-22 18:20 | NUR ---
PT SITTING UP IN BED EATING DINNER. PATIENT STABLE, O2 96%. CALL LIGHT WITHIN REACH.
--- NOTE | 2020-12-22 19:15 | NUR ---
PT ENDORSED TO CAREER TRANSITION SPECIALIST NURSE. PATIENT IN STABLE CONDITION. NO S/S OF DISTRESS.
--- NOTE | 2020-12-22 19:16 | NUR ---
RECEIVED BEDSIDE ENDORSEMENT FROM AM SHIFT RN. PATIENT IS ON ROOM AIR, O2 SAT WNL, NO DISTRESS, R LOWER LEG G20, INTACT AND PATENT, RT ARM AV SHUNT, SAFETY MEASURES IN PLACE, PLAN OF CARE DISCUSSED, DENIES PAIN, WILL CONTINUE TO MONITOR, CALL LIGHT WITHIN REACH.
--- NOTE | 2020-12-22 19:31 | NUR ---
ASSESSED PT FOR 0 BREATHING TREATMENT, PTS BREATH SOUNDS WERE CLEAR, PT WAS IN NO DISTRESS AND EATING DINNER, NO TX NEEDED AT THIS TIME, ADVISED PT TO MAKE NURSE AWARE IF SHE FELT SHORT BREATH AND I WOULD RETURN TO ADMINISTER BREATHING TREATMENT, PT AGREED TO PLAN OF CARE. NO BREATHING TREATMENT GIVEN AT THIS TIME. WILL CONTINUE TO MONITOR
[2020-12-22 20:00] VITALS: BP 155/89
[2020-12-22] MEDS: INSULIN LISPRO SLIDING SCALE 100 UNITS/ML VIAL SUBQ PRN (20:20)
--- NOTE | 2020-12-22 20:24 | NUR ---
HUMALOG SQ GIVEN PER SLIDING SCALE, TOLERATED WELL, CALL LIGHT WITHIN REACH.
[2020-12-22] MEDS: ACETAMINOPHEN 325 MG TAB PO PRN (23:08)
[2020-12-23] VITALS: BP 165/89
[2020-12-23] MEDS: MORPHINE SULFATE 2 MG/ML SYR IVP PRN ×4 (00:56→18:32)
[2020-12-23] MEDS: ALBUTEROL SULFATE/IPRATROPIU 3 ML SOL IH SCH ×4 (01:45→19:00)
--- NOTE | 2020-12-23 01:45 | NUR ---
PT WAS AWAKE, I SPOKE WITH PT ABOUT BREATHING TREATMENT, PT STATED " I DONT WANT IT IF I DONT NEED IT." I LISTENED THE PT BREATH SOUNDS, THE PT WAS CLEAR ANTERIORLY/ BILATERALLY, AND IN NO DISTRESS WITH A SATURATION OF 98% ON ROOM AIR, PT HAS AVAILABLE PRN TREATMENTS OF WHICH I INFORMED THE RN. WILL CONTINUE TO MONITOR
[2020-12-23] MEDS: hydrALAZINE 20 MG/ML VIAL IVP PRN ×2 (01:53→14:06)
--- NOTE | 2020-12-23 01:57 | NUR ---
HYDRALAZINE IVP GIVEN FOR , HR 93, DENIES PAIN, NO DISTRESS.
[2020-12-23] MEDS: DEXT 5% /NACL 0.9% 1,000 ML IV SCH (03:15)
[2020-12-23 04:00] VITALS: BP 157/95
--- NOTE | 2020-12-23 04:00 | NUR ---
V/S TAKEN, NO C/O PAIN, APPEARS COMFORTABLE, WILL CONTINUE TO MONITOR, CALL LIGHT WITHIN REACH.
[2020-12-23] MEDS: BLOOD GLUCOSE MONITORING 1 DEV DEV FS SCH ×4 (06:42→21:28)
--- NOTE | 2020-12-23 06:43 | NUR ---
ASLEEP, NOTED CHEST RISE, CALL LIGHT WITHIN REACH.
[2020-12-23 06:50] LABS: ANION GAP 13.1 (8-16); CARBON DIOXIDE 24.1 mmol/L (21-32); CREATININE 2.4 mg/dL (0.6-1.3); POTASSIUM 4.2 mmol/L (3.5-5.1)
[2020-12-23 07:05] LABS: BASOPHILS # (AUTO) 0.1 K/uL (0.00-0.22); EOSINOPHILS # (AUTO) 0.5 K/uL (0-0.4); EOSINOPHILS % (AUTO) 5.2 % (0.0-4.0); HEMATOCRIT 27.8 % (36-48); HEMOGLOBIN 9.3 g/dL (12.0-16.0); LYMPHOCYTES # (AUTO) 0.8 K/uL (2.5-16.5); LYMPHOCYTES % (AUTO) 8.7 % (20.5-51.1); MEAN CORPUSCULAR HEMOGLOBIN 31 pg (27-31); MEAN CORPUSCULAR HGB CONC 34 g/dL (33-37); MEAN CORPUSCULAR VOLUME 93.4 fL (80-94); MONOCYTES # (AUTO) 0.7 K/uL (0.8-1.0); MONOCYTES % (AUTO) 7.2 % (1.7-9.3); NEUTROPHILS # (AUTO) 7.2 K/uL (1.8-7.7); NEUTROPHILS % (AUTO) 77.9 % (42.2-75.2); PLATELET COUNT (AUTO) 564 K/uL (140-450); RED BLOOD CELL COUNT(AUTO) 2.98 MIL/uL (4.20-5.40); WHITE BLOOD COUNT (AUTO) 9.3 K/uL (4.8-10.8)
[2020-12-23 07:18] LABS: MAGNESIUM 1.9 mg/dL (1.8-2.4)
--- NOTE | 2020-12-23 07:28 | NUR ---
PT IS ON DIALYSIS AT THIS TIME. STABLE. BEDSIDE ENDORSEMENT GIVEN TO AM SHIFT RN FOR CONTINUITY OF CARE.
--- NOTE | 2020-12-23 07:29 | NUR ---
RECEIVED REPORT FROM MAINTENANCE OF WAY CLERK NURSE. PATIENT LYING DOWN IN BED RECEIVING HD. HD NURSE AT BEDSIDE. AAOX3, LEGALLY BLIND, IV SITE INTACT, PATENT, ON SALINE LOCK. LEFT BUTTOCK AND SACRAL WOUND DRESSING DRY AND INTACT. REVIEWED PLAN OF CARE WITH PATIENT. PATIENT VERBALIZED UNDERSTANDING. SAFETY MEASURES IN PLACE, CALL LIGHT WITHIN REACH. WILL CONTINUE TO MONITOR.
--- NOTE | 2020-12-23 07:42 | NUR ---
PATIENT TOLERATING DECANNULATION OF TRACH WELL. PATIENT INDICATES UNDERSTANDING WITH TREATMENT AND FOLLOWS COMMANDS. NO RESP DISTRESS NOTED.
[2020-12-23 08:00] VITALS: BP 172/102
[2020-12-23] MEDS: FERROUS SULFATE 325 MG TABEC PO SCH ×2 (09:37→16:38)
[2020-12-23] MEDS: VIT-B COMP/VIT-C/FOLIC ACID 1 TAB PO SCH (09:37)
[2020-12-23] MEDS: ESCITALOPRAM 20 MG TAB GT SCH (09:37)
[2020-12-23] MEDS: amLODIPine 5 MG TAB GT SCH (09:37)
[2020-12-23] MEDS: EPOETIN ALFA-EPBX 10,000 UNITS/ML VIAL IV SCH (09:38)
[2020-12-23] MEDS: SKINTEGRITY HYDROGEL TP SCH (09:38)
[2020-12-23] MEDS: ASCORBIC ACID 500 MG/5 ML ORASYR GT SCH (09:38)
--- NOTE | 2020-12-23 09:45 | NUR ---
SCHEDULED MEDICATIONS DUE GIVEN. WILL CONTINUE TO MONITOR.
[2020-12-23] MEDS: ACETAMINOPHEN 325 MG TAB PO PRN ×2 (10:20→16:38)
--- NOTE | 2020-12-23 10:23 | NUR ---
PATIENT COMPLAINS OF A HEADACHE AFTER HD COMPLETED, TYELENOL GIVEN AT THIS TIME. HD COMPLETED, 3L OUT.
[2020-12-23] MEDS ORDERED: HYDR-3233 PO (11:10)
[2020-12-23] MEDS: INSULIN LISPRO SLIDING SCALE 100 UNITS/ML VIAL SUBQ PRN ×2 (11:55→16:38)
--- NOTE | 2020-12-23 11:55 | NUR ---
PATIENT LYING DOWN IN BED SLEEPING, AROUSABLE BY VOICE. NO DISTRESS NOTED. CONDITION UNCHANGED. SCHEDULED MEDICATIONS DUE GIVEN. WILL CONTINUE TO MONITOR.
[2020-12-23 12:00] VITALS: BP 173/94
--- NOTE | 2020-12-23 12:25 | NUR ---
POC discussed with outsole caser, called to Ranjith [phone], no one answer, message left voice mail to call back.l
--- NOTE | 2020-12-23 13:30 | NUR ---
ASSISTED CARPENTER PROTOTYPE IN CLEANING AND REPOSITIONING PATIENT. WOUND DRESSINGS CHANGED PER MD ORDERS AND WOUND PICTURES TAKEN. WILL CONTINUE TO MONITOR.
--- NOTE | 2020-12-23 14:13 | NUR ---
SCHEDULED MEDICATIONS DUE GIVEN. MORPHINE GIVEN FOR PAIN PER PATIENT REQUESTED. HYDRALAZINE IVP GIVEN FOR HIGH BP. WILL CONTINUE TO MONITOR.
[2020-12-23 16:00] VITALS: BP 138/78
--- NOTE | 2020-12-23 16:39 | NUR ---
PATIENT COMPLAINS OF A HEADACHE, TYLENOL GIVEN AT THIS TIME. OTHER SCHEDULED MEDICATIONS DUE GIVEN. WILL CONTINUE TO MONITOR.
--- NOTE | 2020-12-23 19:22 | NUR ---
GAVE REPORT TO CONTACT LENS TECHNICIAN NURSE FOR CONTINUITY OF CARE. PATIENT IN STABLE CONDITION.
--- NOTE | 2020-12-23 19:30 | NUR ---
PT WAS ON PHONE AT TIME OF BREATHING TREATMENT, PT ASKED IF I COULD COME BACK, I TOLD THE PT I COULD LISTEN TO HER LUNGS AND I COULD COME BACK IF SHE NEEDED A TREATMENT, PTS BREATH SOUNDS WERE CLEAR BILATERALLY, INFORMED PT AND RN OF PRN TREATMENTS, PT WAS IN NO DISTRESS, WILL CONTINUE TO MONITOR
[2020-12-23 20:00] VITALS: BP 146/81
--- NOTE | 2020-12-23 20:00 | NUR ---
REPORT GIVEN BY AM SHIFT. PT IS ALERT ORIENTED X4, NO S/S OF RESP DISTRESS. NO SOB. PT ON ROOM AIR.NO S/S OF PAIN . PT LOOK RELAX AND SLEEPING AT THIS TIME. PT S/P DECANULATION FEW DAYS AGO DRESSING COVER THE STOMA AREA . ABD SOFT NON DISTENDED. SKIN WARM TO TOUCH. IV NS TKO TO RIGHT FOOT. AV SHUNT TO RIGHT LOWER ARM. PT HAVE DIALYSIS TO DAY AND PER REPORT 3 LITER WAS TAKEN DAVE WELL. EDEMA TO BLE +2. ELEVATE AREA WITH PILLOWS. SACRAL WOUND STAGE IV. REPOSITION FOR COMFORT. KEPT CLEAN AND DRY. CALL LIGHT IB REACH.
--- NOTE | 2020-12-23 21:45 | NUR ---
BLOOD SUGAR 119. NO COVERAGE NEEDED.
[2020-12-24] VITALS: BP 148/70
[2020-12-24] MEDS: MORPHINE SULFATE 2 MG/ML SYR IVP PRN ×5 (00:05→21:32)
--- NOTE | 2020-12-24 00:07 | NUR ---
C/O PAIN 8/10 ON WOUND SITE . REPOSITION FOR COMFORT PRN MORPHINE GIVEN ORDER DAVE WELL.
[2020-12-24] MEDS: ALBUTEROL SULFATE/IPRATROPIU 3 ML SOL IH SCH ×4 (01:00→19:00)
--- NOTE | 2020-12-24 02:00 | NUR ---
PT SLEEP WELL. REPOSITION FOR COMFORT.
[2020-12-24] MEDS: DEXT 5% /NACL 0.9% 1,000 ML IV SCH (04:50)
--- NOTE | 2020-12-24 05:15 | NUR ---
PT WAS C/O SEVERE PAIN AND PRN MORPHINE IVP WAS GIVEN AND DAVE WELL.
[2020-12-24 06:17] LABS: MAGNESIUM 1.6 mg/dL (1.8-2.4); PHOSPHORUS 3.9 mg/dL (2.5-4.9)
[2020-12-24] MEDS: BLOOD GLUCOSE MONITORING 1 DEV DEV FS SCH ×4 (06:44→21:36)
--- NOTE | 2020-12-24 07:07 | NUR ---
BLOOD SUGAR 117 NO INSULIN NEED AT THIS TIME.
--- NOTE | 2020-12-24 07:30 | NUR ---
RECEIVED BEDSIDE REPORT FROM ENGINEER SECOND ASSISTANT NURSE. PT IS ALERT ORIENTED X4, RESPIRATIONS EVEN AND UNLABORED. PT ON ROOM AIR. NO S/S OF RESP DISTRESS. S/P DECANULATION ON 12/19 WITH DRESSING COVERING THE STOMA. NO DRAINAGE NOTED. SKIN IS WARM TO TOUCH. NOTED OPEN SACRAL WOUND REINFORCED WITH DRESSING. C/D/I. IV NS TKO TO RIGHT FOOT. AV SHUNT TO RIGHT LOWER ARM. S/P HD 7/. 3 LITER OF FLUIDS WAS REMOVED. PLAN OF CARE DISCUSSED. SAFETY PRECAUTIONS IN PLACE. CALL LIGHT WITHIN REACH. WILL CONTINUE TO MONITOR.
[2020-12-24 08:00] VITALS: BP 175/92
--- NOTE | 2020-12-24 08:45 | NUR ---
PT. IS AAX4, PT. REFUSED FOR SNF PLACEMENT RISKS AND BENEFITS EXPLAINED. POC DISCUSSED WITH PHYSICIAN DR. ANGLIN, ADVERTISING PRODUCTION MANAGER AND PT. ALL WOUND CARE RECOMMENDATIONS EXPLAINS AND CALLED TO NATHALIE TO MEET WITH HIM AROUND 10:00 AM FOR WOUND CARE TEACHING. ADVERTISING PRODUCTION MANAGER TO [facility]RANGE HOME [facility].
[2020-12-24] MEDS: ASCORBIC ACID 500 MG/5 ML ORASYR GT SCH (09:08)
[2020-12-24] MEDS: VIT-B COMP/VIT-C/FOLIC ACID 1 TAB PO SCH (09:08)
[2020-12-24] MEDS: ESCITALOPRAM 20 MG TAB GT SCH (09:12)
[2020-12-24] MEDS: amLODIPine 5 MG TAB GT SCH (09:12)
[2020-12-24] MEDS: FERROUS SULFATE 325 MG TABEC PO SCH ×2 (09:13→16:26)
[2020-12-24] MEDS: SKINTEGRITY HYDROGEL TP SCH (09:13)
--- NOTE | 2020-12-24 09:22 | NUR ---
PATIENT COMPLAINED OF SACRAL PAIN 03/04. ADMINISTERED MORPHINE IVP PER MD ORDERED.
[2020-12-24] MEDS: hydrALAZINE 20 MG/ML VIAL IVP PRN (09:23)
--- NOTE | 2020-12-24 10:04 | NUR ---
ALL SCHEDULED MEDS GIVEN. PT IS STABLE. NO DISTRESS NOTED. WILL CONTINUE TO MONITOR.
--- NOTE | 2020-12-24 10:11 | NUR ---
WOUND CARE NURSE AT BEDSIDE CHANGING SACRAL DRESSING. WOUND CARE EDUCATING THE FAMILY WITH WOUND CARE CHANGES.
[2020-12-24 10:28] LABS: BILIRUBIN,DIRECT 0.1 mg/dL (0.0-0.3); TOTAL BILIRUBIN 0.3 mg/dL (0.0-1.0)
[2020-12-24 10:37] LABS: ALBUMIN 1.6 g/dL (3.4-5.0)
--- NOTE | 2020-12-24 10:42 | NUR ---
WOUND CARE RE-EVALUATION NOTE: WOUND CARE RE-EVALUATION DONE. MET AT BED SIDE WOUND CARE TEACHING DONE WITH RETURN DEMONSTRATION CORRECTLY, POC DISCUSSED WITH DISCHARGE PLAN AND ALL RECOMMENDATIONS EXPLAINS. PER , HE UNDERSTAND AND HAS 2ND THOUGH OF SNF CARE INSTEAD OF HOME HEALTH. REQUEST MADE AWARE TO SENIOR WEB ARCHITECT AND PENDING DECISION. POC DISCUSSED WITH PRIMARY RN, PRIMARY RN CONTINUE WITH WOUND CARE TEACHING WITH . WOUND HAS RESPONSE TO CURRENT TREATMENT, WILL DISCONTINUE HYDROGEL TO LEFT ISCHIA AND PLACE FOAM DRESSING QD AND PRN IF SOILING -TRACH AND GT S/P REMOVAL SURGICAL WOUNDS SITES : TRACH SITE CLOSED DRAKE STOMA SKIN DRY AND INTACT. GT SITE 0.5X1CM SUPERFICIAL DEPTH, WOUND BED, MOIST AND PINK, NO ODOR, DRAKE-WOUND SKIN DRY AND INTACT. -LEFT ISCHIA PRESSURE INJURY RESURFACE WITH 4X5CM NON-BLANCHABLE REDNESS HEALING SCAR TISSUE,DRAKE-WOUND MAD EROSION 0.5X0.5CM SUPERFICIAL DEPTH, PAIN 0/10 -SACRALCOCCYX PRESSURE INJURY STAGE 4 WOUND BED 9X11X1 CM UNDERMINING 6-9 OCLOCK 1.8CM WOUND BED 80% GRANULATING TISSUE,20% SOFT LOOSE YELLOW SLOUGH TISSUE, MODERATE AMOUNT SANGUINOUS DRAINAGE, NO ODOR, WOUND EDGE FLAT AND DRAKE WOUND SKIN PALE PINK, INTACT, PAIN 0/10 RECOMMENDATIONS - CLEANSE SACRALCOCCYX AND LLQ ABDOMEN S/P GT SITE WITH WOUND CARE SOLUTION, PAT DRY, APPLY HYDROGEL TO WOUND BED COVER WITH FAN FOLDED KERLIX ROLL AND ABD PAD, SECURED WITH TAPE QD AND PRN IF SOILING -CLEANSE LEFT ISCHIA WITH WOUND CARE SOLUTION, PAT DRY, APPLY FOAM DRESSING QD AND PRN IF SOILING -TURN AND REPOSITION PATIENT Q 2H -ASSESS AND MONITOR SKIN CONDITION DURING POSITION CHANGE -OFFLOAD BILATERAL HEELS BY PLACING PILLOWS UNDER CALVES AT ALL TIMES, UNLESS OTHERWISE CONTRAINDICATED -PRESSURE REDISTRIBUTION SURFACE THERAPY -KEEP SKIN CLEAN AND DRY AT ALL TIMES. PLEASE CONTACT WOUND CARE NURSE FOR ANY QUESTION AND CHANGE OF WOUND CONDITION.
[2020-12-24] MEDS: INSULIN LISPRO SLIDING SCALE 100 UNITS/ML VIAL SUBQ PRN ×2 (12:14→17:14)
--- NOTE | 2020-12-24 12:14 | NUR ---
BLOOD GLUCOSE CHECK WAS 164. INSULIN COVERAGE NEEDED. ADMINISTERED 2 UNITS OF INSULIN SQ PER MD ORDERED.
[2020-12-24] MEDS: FOAM DRESSING TP SCH (12:16)
--- NOTE | 2020-12-24 13:47 | NUR ---
SPOKE TO STEVE CARL. PATIENT WILL BE TRANSFERRED TO [facility] AT 1700. TRANSPORTATION WILL BE PROVIDED BY [facility].
--- NOTE | 2020-12-24 13:53 | NUR ---
12/24/20 RD FOLLOW UP COMPLETED PLEASE REFER TO NUTRITION ASSESSMENT UNDER CARE ACTIVITY FOR ESTIMATED NUTRITIONAL NEEDS. 1.CONT DIET ORDERED, ENCOURAGE PO INTAKE 2.RD TO FOLLOW UP IN 2-3 DAYS, PATIENT IS HIGH RISK SHARDA BRYANT RD
[2020-12-24 14:10] VITALS: BP 150/88
--- NOTE | 2020-12-24 14:41 | NUR ---
CONTACTED MARY AND GAVE PATIENT REPORT TO SAI MERINO. NOTIFIED HER THAT PATIENT WILL BE TRANSPORTED TO THE UNIT AT 1700 UNDER [facility]. Addendum: 12/24/20 at 1621 by Pranay Maloney RN RN WILL BE TRANSFERRED TO ROOM 49C
[2020-12-24 16:00] VITALS: BP 147/77
--- NOTE | 2020-12-24 16:26 | NUR ---
PATIENT COMPLAINED OF SACRAL PAIN 03/04. ADMINISTERED MORPHINE IVP PER MD ORDERED
--- NOTE | 2020-12-24 16:30 | NUR ---
ENDORSED DISCHARGE INSTRUCTIONS TO PATIENT. PATIENT VERBALIZED UNDERSTANDING BUT UNABLE TO SIGN FORMS. WILL NOTIFY THAT PATIENT WILL BE TRANSFERRED TO [facility].
--- NOTE | 2020-12-24 17:14 | NUR ---
BLOOD GLUCOSE CHECK WAS 164. INSULIN COVERAGE NEEDED. ADMINISTERED 2 UNITS OF INSULIN SQ PER MD ORDERED.
[2020-12-24] MEDS: ONDANSETRON 4 MG/2 ML VIAL IM/IVP PRN (17:16)
--- NOTE | 2020-12-24 17:16 | NUR ---
PATIENT COMPLAINED OF VOMITING. ADMINISTERED ZOFRAN IVP PER MD ORDERED.
--- NOTE | 2020-12-24 18:01 | NUR ---
CONTACTED [facility] REGARDING WHEREABOUTS OF TRANSPORTATION. WAS NOTIFIED THAT TRANSPORTATION IS DELAYED AND TO CALL BACK IN 15 MINS IF TRANSPORTATION FOR PATIENT HAS NOT ARRIVED.
--- NOTE | 2020-12-24 19:33 | NUR ---
ENDORSED TO LEASING REPRESENTATIVE NURSE FOR CONTINUITY OF CARE. PT IS STABLE.
--- NOTE | 2020-12-24 19:34 | NUR ---
RECEIVED PATIENT FROM AM NURSE FOR CONTINUITY OF CARE. PATIENT IS RESTING IN BED, AROUSABLE TO VOICE. RESPIRATORY EVEN AND UNLABORED, ON ROOM AIR, NO SIGN OF DISTRESS NOTED. SKIN WARM, DRY, NON DIAPHORETIC. SACRAL WOUND NOTED WITH DRESSING, DRY, CLEAN AND INTACT. DRESSING COVER THE STOMA, DECANNULATION ON 12/19. IV ON RIGHT FOOT, INTACT AND PATENT, TKO. AV SHUNT TO RIGHT LOWER ARM FOR DIALYSIS. HD 12/23/2020 WITH 3L OUTPUT. PLAN OF CARE DISCUSSED, PATIENT VERBALIZED UNDERSTANDING. PRECAUTION IN PLACE. CALL LIGHT WITHIN REACH. WILL CONTACT [facility] TO FOLLOW UP THE TRANSPORTATION. WILL CONTINUE TO MONITOR.
[2020-12-24 20:00] VITALS: BP 154/88
--- NOTE | 2020-12-24 20:22 | NUR ---
SPOKE WITH LORRAINE FROM [facility] REGARDING THE TRANSPORTATION. LORRAINE UPDATED THE RETAIL SECURITY PROFESSIONAL LOCATION AND ARRIVAL LOCATION. SHE PREFERRED TO CALL [facility] [phone] AFTER 15 MIN FOR ETA. WILL FOLLOW UP.
--- NOTE | 2020-12-24 20:27 | NUR ---
1900 PATIENT ASLEEP. NO SOB NOTED. NO HHNTX GIVEN.
--- NOTE | 2020-12-24 21:50 | NUR ---
CALLED [facility] # [phone] AND SPOKE TO AYANNA, STATED THEY DON'T HAVE THIS PT FOR TRANSPORT TONIGHT AND TO CALL DISPATCHER FOR ANOTHER COMPANY FOR TRANSPORT, CALLED DISPATCHER [employer] #[phone], NO ANSWER FOR 10 MINUTES, CALLED [facility] AND SAID STEVE CARL TO TRY CALLING [facility], CALLED [facility] #[phone] AND SPOKE TO DRAKE, STATED THEY ARE DONE FOR TONIGHT AND TO CALL TOMORROW AT 0900 TO ARRANGE FOR TRANSPORT, [facility] AND MATHEUS BOWENS MADE AWARE. TRIED [employer] AGAIN, NO ANSWER FOR 12 MINUTES.
--- NOTE | 2020-12-24 22:00 | NUR ---
ROUND CHECK. PATIENT IS SLEEPING, CHEST RISE AND FALL. NO SIGN OF RESPIRATORY DISTRESS. PRECAUTION IN PLACE. CALL LIGHT WITHIN REACH. WILL CONTINUE TO MONITOR.
--- NOTE | 2020-12-24 22:18 | NUR ---
CALLED [facility] #[phone] AND TALKED TO BROOKE, MADE AWARE THAT PT CANNOT BE TRANSFERRED TONIGHT DUE TO TRANSPORT REASON AND WILL BE THERE TOMORROW.
--- NOTE | 2020-12-25 | NUR ---
ROUND CHECK. PATIENT IS SLEEPING, CHEST RISE AND FALL, NO SIGN OF DISTRESS NOTED. PRECAUTION IN PLACE. CALL LIGHT WITHIN REACH. WILL CONTINUE TO MONITOR.
--- NOTE | 2020-12-25 02:03 | NUR ---
ROUND CHECK. PATIENT IS SLEEPING, CHEST RISE AND FALL. NO SIGN OF DISTRESS. PRECAUTION IN PLACE. CALL LIGHT WITHIN REACH. WILL CONTINUE TO MONITOR.
[2020-12-25] MEDS: DEXT 5% /NACL 0.9% 1,000 ML IV SCH (03:15)
[2020-12-25] MEDS: MORPHINE SULFATE 2 MG/ML SYR IVP PRN ×2 (03:55→09:17)
--- NOTE | 2020-12-25 03:55 | NUR ---
PATIENT COMPLAINS PAIN ON HER SACRAL WOUND 02/01. PRN MEDICATION GIVEN WITH EDUCATION, PATIENT VERBALIZED UNDERSTANDING. PATIENT TOLERATED WELL. PRECAUTION IN PLACE. CALL LIGHT WITHIN REACH. WILL CONTINUE TO MONITOR.
[2020-12-25 04:00] VITALS: BP 163/90
--- NOTE | 2020-12-25 04:55 | NUR ---
PATIENT REPORTS PAIN TOLERATED. PATIENT IS RESTING IN BED, NO SIGN OF RESPIRATORY DISTRESS. PRECAUTION IN PLACE. CALL LIGHT WITHIN REACH. WILL CONTINUE TO MONITOR.
[2020-12-25] MEDS: BLOOD GLUCOSE MONITORING 1 DEV DEV FS SCH ×2 (06:50→11:43)
--- NOTE | 2020-12-25 06:50 | NUR ---
BLOOD SUGAR CHECK 130, NO INSULIN NEED. NO SIGN OF DISTRESS NOTED. PRECAUTION IN PLACE. WILL CONTINUE TO MONITOR.
[2020-12-25] MEDS: ALBUTEROL SULFATE/IPRATROPIU 3 ML SOL IH SCH ×2 (07:26→12:06)
--- NOTE | 2020-12-25 07:30 | NUR ---
ENDORSED PATIENT TO AM NURSE FOR CONTINUITY OF CARE. PATIENT IS STABLE.
--- NOTE | 2020-12-25 07:40 | NUR ---
RECEIVED BEDSIDE REPORT FROM ADMISSIONS MANAGER RN NURSE. PT IS ALERT ORIENTED X4, RESPIRATIONS EVEN AND UNLABORED. PT ON ROOM AIR. NO S/S OF RESP DISTRESS. S/P DECANULATION ON 12/19 WITH DRESSING COVERING THE STOMA. NO DRAINAGE NOTED. SKIN IS WARM TO TOUCH. NOTED OPEN SACRAL WOUND REINFORCED WITH DRESSING. C/D/I. IV NS TKO TO RIGHT FOOT. AV SHUNT TO RIGHT LOWER ARM. S/P HD 7/. 3 LITER OF FLUIDS WAS REMOVED. PLAN OF CARE DISCUSSED. SAFETY PRECAUTIONS IN PLACE. CALL LIGHT WITHIN REACH. WILL CONTINUE TO MONITOR.
[2020-12-25 08:00] VITALS: BP 169/94
[2020-12-25] MEDS: FERROUS SULFATE 325 MG TABEC PO SCH (09:00)
[2020-12-25] MEDS: VIT-B COMP/VIT-C/FOLIC ACID 1 TAB PO SCH (09:07)
[2020-12-25] MEDS: amLODIPine 5 MG TAB GT SCH (09:10)
[2020-12-25] MEDS: ESCITALOPRAM 20 MG TAB GT SCH (09:10)
[2020-12-25] MEDS: EPOETIN ALFA-EPBX 10,000 UNITS/ML VIAL IV SCH (09:11)
[2020-12-25] MEDS: ASCORBIC ACID 500 MG/5 ML ORASYR GT SCH (09:12)
[2020-12-25] MEDS: hydrALAZINE 20 MG/ML VIAL IVP PRN (09:16)
--- NOTE | 2020-12-25 09:17 | NUR ---
PATIENT COMPLAINED OF 9/10 SACRAL PAIN. ADMINISTERED MORPHINE IVP PER MD ORDERED.
--- NOTE | 2020-12-25 09:49 | NUR ---
SPOKE TO RHIANNON IN COMMUNITY EXTENDED, AWARE PT HAS DC ORDER FOR TODAY, AFTER DIALYSIS, PT GOING TO ROOM 49 C
--- NOTE | 2020-12-25 10:00 | NUR ---
NOTIFIED BY INDUCTOR TESTER THAT PATIENT WILL BE TRANSFERRED TO [facility] AT 1500 BY [facility] AFTER HD IS COMPLETED Addendum: 12/25/20 at 1133 by Pranay Maloney RN RN WRONG TIMESTAMP
--- NOTE | 2020-12-25 11:24 | NUR ---
SPOKE TO [facility], WILL HYDROELECTRIC COMPONENT MACHINIST PT 3PM
--- NOTE | 2020-12-25 11:25 | NUR ---
NOTIFIED BY RUBBER BALL FINISHER THAT PATIENT WILL BE TRANSFERRED TO [facility] AT 1500 BY [facility] AFTER HD IS COMPLETED
--- NOTE | 2020-12-25 11:30 | NUR ---
DIALYSIS NURSE AT PATIENT'S BEDSIDE PREPARING FOR HD TREATMENT.
[2020-12-25] MEDS: INSULIN LISPRO SLIDING SCALE 100 UNITS/ML VIAL SUBQ PRN (11:55)
--- NOTE | 2020-12-25 11:55 | NUR ---
BLOOD GLUCOSE WAS 152. INSULIN COVERAGE NEEDED. ADMINISTERED 2 UNITS OF INSULIN SQ PER MD ORDERED.
[2020-12-25] MEDS ORDERED: SKINTEGRITY HYDROGEL TP SCH (13:00)
[2020-12-25] MEDS: FOAM DRESSING TP SCH (13:02)
--- NOTE | 2020-12-25 14:45 | NUR ---
PATIENT COMPLETED HD TREATMENT. 2L FLUIDS WERE REMOVED. PT IS STABLE. NO DISTRESS NOTED. WILL CONTINUE TO MONITOR.
[2020-12-25 15:07] VITALS: BP 138/78
--- NOTE | 2020-12-25 15:30 | NUR ---
ENDORSED DISCHARGE INSTRUCTIONS TO PATIENT. PATIENT VERBALIZED UNDERSTANDING AND IS ALREADY AWARE FROM YESTERDAY THAT SHE WILL BE GOING TO [facility].
[2020-12-25] MEDS: ACETAMINOPHEN 325 MG TAB PO PRN (15:45)
--- NOTE | 2020-12-25 15:45 | NUR ---
PATIENT COMPLAINED OF 3/10 HEADACHE. ADMINISTERED TYLENOL PER MD ORDERED.
--- NOTE | 2020-12-25 15:53 | NUR ---
TRANSPORT ON UNIT TO TAKE PT TO SNF. PT DISCHARGED AT THIS TIME IN STABLE IN CONDITION.
--- NOTE | 2020-12-25 16:10 | NUR ---
ENDORSED SAME DISCHARGE INSTRUCTIONS YESTERDAY. Addendum: 12/25/20 at 1611 by Pranay Maloney RN RN UNFINISHED NOTE
== END 2020-12-25 15:55 | DRG 871 ==
LOC: MED 00:50 → MTU 03:29 → OBSVTOIN 03:30 → MTU 04:56
PROVIDERS: ADMIT Family Medicine; ATTEND Family Medicine
PROC: 30233N1 Transfusion of Nonautologous Red Blood Cells into Peripheral Vein, Percutaneous Approach (ICD-10-PCS; principal; 2020-12-15)
PROC: 5A1D70Z Performance of Urinary Filtration, Intermittent, Less than 6 Hours Per Day (ICD-10-PCS; 2020-12-15)
PROC: 5A1D70Z Performance of Urinary Filtration, Intermittent, Less than 6 Hours Per Day (ICD-10-PCS; 2020-12-17)
PROC: 5A1D70Z Performance of Urinary Filtration, Intermittent, Less than 6 Hours Per Day (ICD-10-PCS; 2020-12-20)
PROC: 5A1D70Z Performance of Urinary Filtration, Intermittent, Less than 6 Hours Per Day (ICD-10-PCS; 2020-12-22)
PROC: 0BP1XFZ Removal of Tracheostomy Device from Trachea, External Approach (ICD-10-PCS; 2020-12-22)
PROC: 0DP68UZ Removal of Feeding Device from Stomach, Via Natural or Artificial Opening Endoscopic (ICD-10-PCS; 2020-12-22)
PROC: 5A1D70Z Performance of Urinary Filtration, Intermittent, Less than 6 Hours Per Day (ICD-10-PCS; 2020-12-24)
DX: A41.9 Sepsis, unspecified organism (principal); J69.0 Pneumonitis due to inhalation of food and vomit; L89.154 Pressure ulcer of sacral region, stage 4; N17.0 Acute kidney failure with tubular necrosis; N18.6 End stage renal disease; J96.21 Acute and chronic respiratory failure with hypoxia; I50.43 Acute on chronic combined systolic (congestive) and diastolic (congestive) heart failure; E43 Unspecified severe protein-calorie malnutrition; K29.51 Unspecified chronic gastritis with bleeding; E87.1 Hypo-osmolality and hyponatremia; I13.2 Hypertensive heart and chronic kidney disease with heart failure and with stage 5 chronic kidney disease, or end stage renal disease; E83.41 Hypermagnesemia; E11.22 Type 2 diabetes mellitus with diabetic chronic kidney disease; H54.8 Legal blindness, as defined in USA; Z20.822 Contact with and (suspected) exposure to COVID-19; E87.5 Hyperkalemia; D64.9 Anemia, unspecified; Z99.2 Dependence on renal dialysis; Z86.711 Personal history of pulmonary embolism; Z93.0 Tracheostomy status; Z93.1 Gastrostomy status; Z88.1 Allergy status to other antibiotic agents; Z88.0 Allergy status to penicillin; Z93.4 Other artificial openings of gastrointestinal tract status; Z68.20 Body mass index [BMI] 20.0-20.9, adult
CPT/HCPCS: 36430; 43235; 99285; G0378; 36415; 36600; 71045; 71250; 80048; 80076; 82150; 82272; 82607; 82728; 82746; 82803; 82948; 83036; 83540; 83605; 83690; 83735; 83880; 84100; 84436; 84439; 84443; 84479; 84484; 85018; 85025; 85045; 85610; 85730; 86886; 86900; 86901; 86920; 87081; 90935; 93005; 93970; 94640; 97110; 97163-GP; 97530; A4649; A6248; C9113; J0360; J1815; J2250; J2270; J2405; J2916; J3010; J3490; J7030; J7060; P9016; Q5106